=== PATIENT | female | born 1945 | race Caucasian/White ===

== ENCOUNTER → 2016-12-23 | Outpatient (CLI) | payer OTHER ==
[2016-12-23 12:19] LABS: BASO % 0.3 %; BASO ABS # 0.03 K/uL (0-0.2); COMPLETE YES; EOS % 2.5 %; HEMATOCRIT 40.8 % (37-47); IG% 0.4 %; LYMPH % 37.1 %; LYMPH ABS # 3.55 K/uL (1.2-3.4); MEAN CELL VOLUME 85.2 fL (80-100); MEAN CORPUSCULAR HEMOGLOBIN 27.6 pg (25-34); MEAN CORPUSCULAR HGB CONC 32.4 g/dl (32-36); MEAN PLATELET VOLUME 11.1 fL (7.4-10.4); MONO % 7.9 %; NEUT % 51.8 %; PLATELET COUNT 275 K/uL (130-400); RED BLOOD COUNT 4.79 M/uL (4.2-5.4); WHITE BLOOD COUNT 9.58 K/uL (4.8-10.8)
[2016-12-23 13:12] LABS: ESTIMATED AVERAGE GLUCOSE 177 mg/dl; HA1C FLAG Normal (Normal)
[2016-12-23 13:40] LABS: ALT/SGPT 35 U/L (12-78); BLOOD UREA NITROGEN 29 mg/dl (7-18); BUN/CREATININE RATIO 31.7 (10-20); CALCIUM 9.2 mg/dl (8.5-10.1); CARBON DIOXIDE 30 mmol/L (21-32); CHLORIDE 103 mmol/L (98-107); CHOLESTEROL 135 mg/dl (0-200); CHOLESTEROL/HDL RATIO 3.6; GLUCOSE 193 mg/dl (70-99); HDL CHOLESTEROL 37 mg/dl; LDL CHOLESTEROL CALCULATED 42 mg/dl; POTASSIUM 4.1 mmol/L (3.5-5.1); SODIUM 141 mmol/L (136-145); TRIGLYCERIDES 279 mg/dl (0-150); VERY LOW DENSITY LIPOPROT CALC 56 mg/dl
== END | disposition home or self-care (01) ==
LOC: C.LABPBG 08:29
PROVIDERS: ATTEND Family Medicine
DX: E11.9 Type 2 diabetes mellitus without complications (principal); I10 Essential (primary) hypertension

== ENCOUNTER → 2017-06-26 | Outpatient (CLI) | payer OTHER ==
[2017-06-26 12:35] LABS: ALT/SGPT 28 U/L (12-78); BLOOD UREA NITROGEN 37 mg/dl (7-18); BUN/CREATININE RATIO 36.8 (10-20); CALCIUM 10.2 mg/dl (8.5-10.1); CARBON DIOXIDE 28 mmol/L (21-32); CHLORIDE 101 mmol/L (98-107); CHOLESTEROL 139 mg/dl (0-200); GLUCOSE 179 mg/dl (70-99); POTASSIUM 4.1 mmol/L (3.5-5.1); SODIUM 136 mmol/L (136-145)
[2017-06-26 12:39] LABS: CHOLESTEROL/HDL RATIO 3.7; HDL CHOLESTEROL 38 mg/dl; LDL CHOLESTEROL CALCULATED 32 mg/dl; TRIGLYCERIDES 343 mg/dl (0-150); VERY LOW DENSITY LIPOPROT CALC 69 mg/dl
[2017-06-26 12:52] LABS: RATIO 30.9 mcg/mg (0-30.0)
[2017-06-26 13:51] LABS: ESTIMATED AVERAGE GLUCOSE 166 mg/dl; HA1C FLAG Normal (Normal)
== END | disposition home or self-care (01) ==
LOC: C.LABPBG 08:26
PROVIDERS: ATTEND Family Medicine
DX: E78.00 Pure hypercholesterolemia, unspecified (principal); I10 Essential (primary) hypertension; E11.9 Type 2 diabetes mellitus without complications

== ENCOUNTER → 2017-12-29 | Outpatient (CLI) | payer OTHER ==
[2017-12-29 13:05] LABS: ALT/SGPT 30 U/L (12-78); BLOOD UREA NITROGEN 34 mg/dl (7-18); CALCIUM 9.8 mg/dl (8.5-10.1); CARBON DIOXIDE 27 mmol/L (21-32); CHOLESTEROL 144 mg/dl (0-200); CREATININE 0.93 mg/dl (0.60-1.20); GLUCOSE 189 mg/dl (70-99); POTASSIUM 3.8 mmol/L (3.5-5.1); SODIUM 136 mmol/L (136-145)
[2017-12-29 13:08] LABS: LDL CHOLESTEROL CALCULATED 35 mg/dl
[2017-12-29 13:16] LABS: HEMOGLOBIN A1C 7.6 % (4.5-5.6)
== END | disposition home or self-care (01) ==
LOC: C.LABPBG 08:20
PROVIDERS: ATTEND Family Medicine
DX: R39.89 Other symptoms and signs involving the genitourinary system (principal); E78.00 Pure hypercholesterolemia, unspecified; I10 Essential (primary) hypertension; E11.9 Type 2 diabetes mellitus without complications

== ENCOUNTER 2019-02-19 12:54 | Observation (INO) ==
--- NOTE | 2019-02-05 10:11 | Anesthesiology Consultation ---
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 Ankur Pascual, Height/Weight Height: 4 ft 11 in Weight: 77.111 kg Allergies Allergy/AdvReac Type Severity Reaction Status Date / Time Sulfa (Sulfonamide Allergy Mild Rash Verified 02/04/19 11:07 Antibiotics) Medications Home Medications Medication Instructions Recorded Confirmed Last Taken amlodipine 2.5 mg PO QAM 02/04/19 02/04/19 Unknown aspirin [Aspirin Childrens] 81 mg PO QDD 02/04/19 02/04/19 Unknown brimonidine-timolol [Combigan] 1 drp OPHTHALMIC (EYE) BID 02/04/19 02/04/19 Unknown insulin aspart U-100 [Novolog 14 unit SUBCUT PM 02/04/19 02/04/19 Unknown Flexpen U-100 Insulin] insulin aspart U-100 [Novolog 46 unit SUBCUT QAM 02/04/19 02/04/19 Unknown Flexpen U-100 Insulin] losartan-hydrochlorothiazide 1 tab PO QAM 02/04/19 02/04/19 Unknown metformin 850 mg PO QDD 02/04/19 02/04/19 Unknown metoprolol tartrate 100 mg PO BID 02/04/19 02/04/19 Unknown [id number]-opsqocdg-wrojah 1 tab PO QAM 02/04/19 02/04/19 Unknown [Multivitamin 50 Plus] omega 6-ger-wbq-fish oil [Fish Oil] 1 cap PO BID 02/04/19 02/04/19 Unknown simvastatin 40 mg PO HS 02/04/19 02/04/19 Unknown Past Medical History Medical History Blood in stool Cystocele Diabetes mellitus, type 2 Glaucoma bilt eyes History of bilateral breast cancer 2000 right/2006 left Hyperlipidemia Hypertension Osteoarthritis Past Family History Family History Aunt Family history of pseudocholinesterase deficiency 2 aunts "difficulty coming out of it" Past Surgical History Surgical History History of colonoscopy History of left breast biopsy History of lumpectomy of left breast 2006 with lymph nodes removed History of lumpectomy of right breast 2000 with lymph nodes removed History of right breast biopsy History of tooth extraction History of total vaginal hysterectomy (TVH) Status post glaucoma surgery bilt Social History Smoking Status: Never smoker Do You Dip or Chew Tobacco: No Hx Alcohol Use: No Hx Substance Use: No substance use type: does not use Testing Laboratory Results Laboratory Tests 12/29/18 12/29/18 09:28 09:28 Sodium 136 Potassium 4.2 Chloride 101 Carbon Dioxide 29 BUN 34 H Creatinine 0.93 Glucose 227 H Hemoglobin A1c 8.2 H
[2019-02-19] MEDS ORDERED: GLUCOSE 10 TABS/TUBE PO PRN (14:46)
[2019-02-19] MEDS ORDERED: GLUCAGON FOR INJ 1 MG VIAL SQ PRN (14:46)
[2019-02-19] MEDS ORDERED: GLUCOSE 40% GEL 15 GM TUBE PO PRN (14:46)
[2019-02-19] MEDS ORDERED: DEXTROSE 50% 50 ML SYRINGE IV PRN (14:46)
[2019-02-19] MEDS ORDERED: CARBOHYDRATES FOR HYPOGLYCEMIA PO PRN (14:46)
--- NOTE | 2019-02-19 14:52 | Anesthesiology Progress Note ---
Date of Service February 19, 2019 Subjective The patient was scheduled for a colonoscopy today. Upon being admitted, the patient�s vital signs were P 127, BP 153/78, R 16,, T 36.6C, 99% on RA. The patient stated not taking her blood pressure medications for the past 2 days. The patient is asymptomatic. She is denying chest pain or trouble breathing. An EKG showed ST @ 119bpm. I spoke with Dr. Pascual, and we agreed the patient�s procedure should be postponed. I spoke with Dr. Leon, and I recommended the patient should be admitted to better control her heart rate prior to being discharged. I spoke with the patient, and she was understanding.
[2019-02-19] MEDS ORDERED: LIDOCAINE HCL 2% 2 ML VIAL/AMP(20MG/ML) INFIL ONE (15:30)
[2019-02-19] MEDS ORDERED: PROPOFOL IV EMULSION 10 MG/ML 20 ML VIAL IV ONE (15:30)
--- NOTE | 2019-02-19 15:50 | History & Physical Report ---
Date of Service February 19, 2019 Assessment & Plan (1) Blood per rectum: Proceed with colonoscopy History of Present Illness Chief Complaint: Rectal bleeding Primary Care Provider: Teagan Mcrae MD 74 yo CF who presents for colonoscopy secondary to rectal bleeding. Allergies Allergy/AdvReac Type Severity Reaction Status Date / Time Sulfa (Sulfonamide Allergy Mild Rash Verified 02/19/19 14:13 Antibiotics) Home Medications Home Medications Medication Instructions Recorded Confirmed Type amlodipine 2.5 mg PO QAM 02/04/19 02/19/19 History aspirin [Aspirin Childrens] 81 mg PO QDD 02/04/19 02/19/19 History brimonidine-timolol [Combigan] 1 drp OPHTHALMIC (EYE) BID 02/04/19 02/19/19 History insulin aspart U-100 [Novolog 8 unit SUBCUT PM 02/04/19 02/19/19 History Flexpen U-100 Insulin] insulin aspart U-100 [Novolog 22 unit SUBCUT QAM 02/04/19 02/19/19 History Flexpen U-100 Insulin] losartan-hydrochlorothiazide 1 tab PO QAM 02/04/19 02/19/19 History metformin 850 mg PO QDD 02/04/19 02/19/19 History metoprolol tartrate 100 mg PO BID 02/04/19 02/19/19 History nfwxspubivqk-cxtahxrn-khhnfh 1 tab PO QAM 02/04/19 02/04/19 History [Multivitamin 50 Plus] omega 3-tjx-zhq-fish oil [Fish Oil] 1 cap PO BID 02/04/19 02/04/19 History simvastatin 40 mg PO HS 02/04/19 02/04/19 History Past Med/Surg History Medical History Blood in stool Cystocele Diabetes mellitus, type 2 Glaucoma bilt eyes History of bilateral breast cancer 2000 right/2006 left Hyperlipidemia Hypertension Osteoarthritis Surgical History History of colonoscopy History of left breast biopsy History of lumpectomy of left breast 2006 with lymph nodes removed History of lumpectomy of right breast 2000 with lymph nodes removed History of right breast biopsy History of tooth extraction History of total vaginal hysterectomy (TVH) Status post glaucoma surgery bilt Family History Aunt Family history of pseudocholinesterase deficiency 2 aunts "difficulty coming out of it" Social History Preferred Language: Occitan Communication Ability: Effective 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 Beliefs That Will Affect Care: None Current Living Situation: Spouse Other Information That Helps Us Care for You: No Feels Safe at Home: Yes Safety Concerns: Feels Safe At This Time Smoking Status: Never smoker Do You Dip or Chew Tobacco: No Second Hand Exposure: No Tobacco Cessation Education Requested by Patient: No Hx Alcohol Use: No Hx Substance Use: No Physical Exam Constitutional: WD/WN, vitals as above Respiratory: normal respiratory effort, lungs clear to auscultation Cardiovascular: RRR, no murmur, no edema Gastrointestinal (Abdomen): normal bowel sounds, soft, nontender, no hepatosplenomegaly Results & Data Vital Signs (Past 12 Hours) Vital Signs Temp Pulse Resp BP Pulse Ox 02/19/19 15:30 115 H 16 150/90 H 96 02/19/19 14:05 36.6 C 127 H 16 153/78 H 99
[2019-02-19] MEDS ORDERED: METOPROLOL TARTRATE 1 MG/ML VIAL IV ONE (15:54)
--- NOTE | 2019-02-19 16:01 | History & Physical Report ---
Date of Service February 19, 2019 Assessment & Plan (1) Blood per rectum: Patient had a bout of melena. This prompted her physician to proceed with colonoscopy. Her last screening colonoscopy was over 10 years ago. Results are currently pending at the time of this dictation we do not have a hemoglobin on record in the system but this will be performed post procedure (2) Tachycardia: Likely from beta-rehana withdrawal patient given intravenous metoprolol and resuming her metoprolol dose of 100 twice daily is having no symptoms with her tachycardia at this time a TSH will be checked also (3) Diabetes: Patient reduce her insulin therapy from 46 in a.m. to 22 and 40 mg each she takes short acting insulin. These have doses will be continued until we can track her insulin requirement during her hospital stay especially in her periprocedural state insulin sliding scale was ordered with PFTs and A1c and will be checked in the morning (4) Hypertension: For the remainder of her blood pressure control she will be resumed on amlodipine losartan hydrochlorothiazide also in the morning of 02/20 (5) Dyslipidemia: Patient is maintained on Zocor therapy History of Present Illness Primary Care Provider: Teagan Mcrae MD 74-year-old female who presented to endoscopy for a elective colonoscopy due to melena. She erroneously held her metoprolol prior to the procedure. She did appropriately reduce her insulin dose by 50%. Onset of holding her metformin she is decided to hold her metoprolol. Subsequently she presented with sinus tachycardia. Coordination with Dr. Bolivar through anesthesiology and Dr. Pascual to endoscopy we came to resolution to try to proceed with colonoscopy with administration of intravenous metoprolol and observe the patient in the hospital afterwards for recovery. This would be beneficial to the patient that is it is Friday and she cannot postpone her test at Friday and I did not wish to proceed through another prep. Otherwise patient is having no chest pain with a tachycardia no shortness of breath tachycardia has no preceding history of tachycardia. It should be noted that Dr. Bolivar was instrumental in facilitating this patient's goal of having her colonoscopy done today Allergies Allergy/AdvReac Type Severity Reaction Status Date / Time Sulfa (Sulfonamide Allergy Mild Rash Verified 02/19/19 14:13 Antibiotics) Home Medications Home Medications Medication Instructions Recorded Confirmed Type amlodipine 2.5 mg PO QAM 02/04/19 02/19/19 History aspirin [Aspirin Childrens] 81 mg PO QDD 02/04/19 02/19/19 History brimonidine-timolol [Combigan] 1 drp OPHTHALMIC (EYE) BID 02/04/19 02/19/19 History insulin aspart U-100 [Novolog 8 unit SUBCUT PM 02/04/19 02/19/19 History Flexpen U-100 Insulin] insulin aspart U-100 [Novolog 22 unit SUBCUT QAM 02/04/19 02/19/19 History Flexpen U-100 Insulin] losartan-hydrochlorothiazide 1 tab PO QAM 02/04/19 02/19/19 History metformin 850 mg PO QDD 02/04/19 02/19/19 History metoprolol tartrate 100 mg PO BID 02/04/19 02/19/19 History duzvxjcqsrrj-uxdqwvvs-qmwjyf 1 tab PO QAM 02/04/19 02/04/19 History [Multivitamin 50 Plus] omega 6-fbp-elj-fish oil [Fish Oil] 1 cap PO BID 02/04/19 02/04/19 History simvastatin 40 mg PO HS 02/04/19 02/04/19 History Past Med/Surg History Medical History Blood in stool Cystocele Diabetes mellitus, type 2 Glaucoma bilt eyes History of bilateral breast cancer 2000 right/2006 left Hyperlipidemia Hypertension Osteoarthritis Surgical History History of colonoscopy History of left breast biopsy History of lumpectomy of left breast 2006 with lymph nodes removed History of lumpectomy of right breast 2000 with lymph nodes removed History of right breast biopsy History of tooth extraction History of total vaginal hysterectomy (TVH) Status post glaucoma surgery bilt Family History Aunt Family history of pseudocholinesterase deficiency 2 aunts "difficulty coming out of it" Social History Preferred Language: Burkinan Communication Ability: Effective 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 No double vision blurry vision No problems with speech or swallowing No palpitations, chest pain or pressure No Wheezing or breathing issues No abdominal pain nausea vomiting diarrhea no changes in appetite or weight, one bout of melena No burning urine urine frequency or changes in color No focal joint pain or muscle pain No skin rashes or oral lesions No unusual bruising or bleeding No focused back pain or numbness or loss of strength No changes in memory or confusion Physical Exam Physical Exam: The patient appeared well nourished and normally developed. Vital signs as documented. Sinus tachycardia seen this is in the preprocedure state Head exam is unremarkable. normocephalic, atraumatic Neck is without jugular venous distension, thyromegaly, or lymphademopathy Lungs are clear to auscultation and percussion. Cardiac exam reveals tachycardic no murmurs were heard Abdominal exam reveals normal bowel sounds, no masses, no organomegaly Extremities are nonedematous and both pedal pulses are present Neurologic exam is A&Ox3, no focal deficits, strength is equal bilateral Psychologically seems neither anxious or depressed Skin is warm Dry without bruises or lesions Results & Data Vital Signs (Past 12 Hours) Vital Signs Temp Pulse Resp BP Pulse Ox 02/19/19 15:30 115 H 16 150/90 H 96 02/19/19 14:05 36.6 C 127 H 16 153/78 H 99
--- NOTE | 2019-02-19 16:15 | GI REPORT ---
Patient Name: Hannah Morrissey Procedure Date: 02/19/2019 3:53 PM Date of : 1945 Admit Type: Outpatient Age: 74 Gender: Female Attending MD: Eliseo Pascual DO Procedure: Colonoscopy Providers: Eliseo Pascual DO Referring MD: Teagan cMrae Md Indications: Rectal bleeding Medicines: Monitored Anesthesia Care Complications: No immediate complications. Estimated Blood Loss: Estimated blood loss: none. Procedure: Pre-Anesthesia Assessment: - Prior to the procedure, a History and Physical was performed, and patient medications and allergies were reviewed. The patient's tolerance of previous anesthesia was also reviewed. The risks and benefits of the procedure and the sedation options and risks were discussed with the patient. All questions were answered, and informed consent was obtained. Prior Anticoagulants: The patient has taken aspirin, last dose was 6 days prior to procedure. ASA Grade Assessment: III - A patient with severe systemic disease. After reviewing the risks and benefits, the patient was deemed in satisfactory condition to undergo the procedure. After I obtained informed consent, the scope was passed under direct vision. Throughout the procedure, the patient's blood pressure, pulse, and oxygen saturations were monitored continuously. The scope was introduced through the anus and advanced to the terminal ileum. The colonoscopy was performed without difficulty. The patient tolerated the procedure well. The quality of the bowel preparation was good. The terminal ileum, ileocecal valve, appendiceal orifice, and rectum were photographed. Findings: The perianal and digital rectal examinations were normal. Multiple small-mouthed diverticula were found in the sigmoid colon. Non-bleeding internal hemorrhoids were found during retroflexion. The hemorrhoids were small. Impression: - Diverticulosis in the sigmoid colon. - Non-bleeding internal hemorrhoids. - No specimens collected. Recommendation: - Resume previous diet. - Continue present medications. - No repeat colonoscopy due to age and the absence of advanced adenomas. - Return to primary care physician as previously scheduled. Eliseo Pascual DO 02/19/2019 4:14:46 PM This report has been signed electronically. Note Initiated On: 02/19/2019 3:53 PM Number of Addenda: 0 I attest to the content of the Intraoperative Record and orders documented therein, exceptions below {[id number]}
--- NOTE | 2019-02-19 16:16 | Anesthesiology Progress Note ---
Date of Service February 19, 2019 Anesthesia Post Procedure Vital Signs Vital Signs: Temp Pulse Resp BP Pulse Ox 02/19/19 15:30 115 H 16 150/90 H 96 02/19/19 14:05 97.9 F 127 H 16 153/78 H 99 Transfer of Care Handoff Completed per policy Notes Mental Status: alert / awake / arousable and participated in evaluation Patient Amnestic to Procedure: Yes Nausea / Vomiting: adequately controlled Pain: adequately controlled Airway Patency, RR, SpO2: stable & adequate BP & HR: stable & adequate Hydration State: stable & adequate Anesthetic Complications: no major complications apparent and Pt Satisfied with anesthetic care Notes: Pt was administered metoprolol 2.5 mg IV. In PACU, pt�s HR 93, BP 106/74, and 100% RA.
[2019-02-19] MEDS ORDERED: INSULIN ASPART 100 UNITS/ML 3 ML PEN SQ SCH (16:30)
[2019-02-19] MEDS ORDERED: METOPROLOL TARTRATE 1 MG/ML VIAL IV PRN (17:38)
[2019-02-19] MEDS ORDERED: ACETAMINOPHEN 325 MG TAB PO PRN (17:38)
[2019-02-19] MEDS ORDERED: ONDANSETRON INJ 2 MG/ML 2 ML VIAL IV PRN (17:38)
[2019-02-19] MEDS: INSULIN ASPART 100 UNITS/ML 3 ML PEN SC SCH ×2 (18:21→22:18)
[2019-02-19 18:27] LABS: Basophils # (auto) 0.02 K/uL (0-0.2); Basophils % (auto) 0.2 %; Eosinophils # (auto) 0.12 K/uL (0-0.5); Eosinophils % (auto) 1.1 %; Hemoglobin 14.1 g/dL (12.0-16.0); Immature Granulocytes # (auto) 0.03 K/uL (0.00-0.02); Immature Granulocytes % (auto) 0.3 %; Lymphocytes # (auto) 4.23 K/uL (1.2-3.4); Lymphocytes % (auto) 37.9 %; Mean Corpuscular Hgb Conc 34.4 g/dL (32-36); Mean Platelet Volume 10.5 fL (7.4-10.4); Monocytes # (auto) 0.68 K/uL (0.11-0.59); Monocytes % (auto) 6.1 %; Neutrophils # (auto) 6.07 K/uL (1.4-6.5); Neutrophils % (auto) 54.4 %; Platelet Count 248 K/uL (130-400); RDW Coefficient of Variation 13.6 % (11.5-14.5); RDW Standard Deviation 41.2 fL (36.4-46.3); Red Blood Count 4.88 M/uL (4.2-5.4); White Blood Count 11.15 K/uL (4.8-10.8)
[2019-02-19] MEDS: SODIUM CHLORIDE 0.9% 1000ML 1,000 ML IV SCH (18:30)
[2019-02-19 18:42] LABS: BUN Creatinine Ratio 27.6 (10-20); Calcium 9.8 mg/dl (8.5-10.1); Creatinine Clr Calc Pharmacy 49.9 ml/min; Est GFR (African American) 76.1; Est GFR (Non-African American) 65.6; Potassium 3.8 mmol/L (3.5-5.1)
[2019-02-19] MEDS: OMEGA-3 (PURIFIED FISH OIL) 1 GM CAP PO SCH (20:46)
[2019-02-19] MEDS: METOPROLOL TARTRATE 100 MG TAB PO SCH (20:47)
[2019-02-19] MEDS ORDERED: SIMVASTATIN 40 MG TAB PO SCH (21:00)
[2019-02-20] MEDS: COMBIGAN: ORDER AWAITING ACTION SCH ×2 (00:34→08:12)
[2019-02-20 06:05] LABS: Hematocrit (blood only) 39.5 % (37-47); Hemoglobin 13.2 g/dL (12.0-16.0); Mean Corpuscular Hgb Conc 33.4 g/dL (32-36); Mean Corpuscular Volume 84.4 fL (80-100); Mean Platelet Volume 10.5 fL (7.4-10.4); Platelet Count 260 K/uL (130-400); RDW Coefficient of Variation 13.5 % (11.5-14.5); RDW Standard Deviation 41.1 fL (36.4-46.3); Red Blood Count 4.68 M/uL (4.2-5.4); White Blood Count 10.09 K/uL (4.8-10.8)
[2019-02-20 06:32] LABS: BUN Creatinine Ratio 21.5 (10-20); Calcium 8.9 mg/dl (8.5-10.1); Est GFR (Non-African American) 61.3; Potassium 3.8 mmol/L (3.5-5.1)
[2019-02-20 07:02] LABS: Estimated Average Glucose 169 mg/dl; Hemoglobin A1C 7.5 % (4.5-5.6)
[2019-02-20] MEDS ORDERED: INSULIN ASPART 100 UNITS/ML 3 ML PEN SQ SCH (07:30)
[2019-02-20] MEDS: SODIUM CHLORIDE 0.9% 1000ML 1,000 ML IV SCH (08:06)
[2019-02-20] MEDS: INSULIN ASPART 100 UNITS/ML 3 ML PEN SC SCH (08:10)
[2019-02-20] MEDS: METOPROLOL TARTRATE 100 MG TAB PO SCH (08:13)
[2019-02-20] MEDS: OMEGA-3 (PURIFIED FISH OIL) 1 GM CAP PO SCH (08:13)
[2019-02-20] MEDS ORDERED: CEROVITE ADV FORMULA TAB PO SCH (09:00)
[2019-02-20] MEDS ORDERED: AMLODIPINE BESYLATE 5 MG TAB PO SCH (09:00)
[2019-02-20] MEDS ORDERED: LOSARTAN/HCTZ 50/12.5MG TAB PO SCH (09:00)
--- NOTE | 2019-02-20 10:05 | Discharge Summary ---
Date of Service February 20, 2019 Admission HPI Per Admitting Provider 74-year-old female who presented to endoscopy for a elective colonoscopy due to melena. She erroneously held her metoprolol prior to the procedure. She did appropriately reduce her insulin dose by 50%. Onset of holding her metformin she is decided to hold her metoprolol. Subsequently she presented with sinus tachycardia. Coordination with Dr. Bolivar through anesthesiology and Dr. Pascual to endoscopy we came to resolution to try to proceed with colonoscopy with administration of intravenous metoprolol and observe the patient in the hospital afterwards for recovery. This would be beneficial to the patient that is it is Friday and she cannot postpone her test at Friday and I did not wish to proceed through another prep. Otherwise patient is having no chest pain with a tachycardia no shortness of breath tachycardia has no preceding history of tachycardia. It should be noted that Dr. Bolivar was instrumental in facilitating this patient's goal of having her colonoscopy done today Principal Diagnosis Rectal bleeding, hemorrhoids Discharge Exam Constitutional WD/WN, vitals as above Eyes PERRL, conjunctivae normal, anicteric sclerae ENMT external ear and nose normal, oropharynx normal Neck trachea midline, no thyromegaly Respiratory normal respiratory effort, lungs clear to auscultation Cardiovascular RRR, no murmur, no edema Gastrointestinal (Abdomen) normal bowel sounds, soft, nontender, no hepatosplenomegaly Musculoskeletal no cyanosis or clubbing, extremities motor strength 5/5 Skin no rashes, warm and dry Neurologic patellar DTR's 2+ bilat, sensation intact and PERRL, EOMI, accommodation nl, no face palsy, no dysarthria Psychiatric A+Ox3, euthymic affect Lymphatic no cervical or axillary lymphadenopathy Discharge Data Allergies Allergy/AdvReac Type Severity Reaction Status Date / Time Sulfa (Sulfonamide Allergy Mild Rash Verified 02/19/19 14:13 Antibiotics) Procedures Performed Operation Date: 02/19/19 14:15 Actual Procedures p Colonoscopy - Eliseo Pascual, DO Hospital Course (1) Blood per rectum: Patient had a bout of melena. This prompted her physician to proceed with colonoscopy. Her last screening colonoscopy was over 10 years ago. colonoscopy only showed some internal hemorrhoids, likely the cause of bleeding no further colonoscopies recommended in her lifetime per Dr. Pascual (2) Tachycardia: Likely from beta-rehana withdrawal patient given intravenous metoprolol and resuming her metoprolol dose of 100 twice daily is having no symptoms with her tachycardia at time of admission HR consistently below 100 on the monitor, now back on Metoprolol 100mg BID safe for discharge (3) Diabetes: resume home dosing of insulin now that bowel prep completed (4) Hypertension: amlodipine losartan hydrochlorothiazide and metoprolol BP well controlled (5) Dyslipidemia: Patient is maintained on Zocor therapy Total Time Total Time Spent Total Time Spent (In Minutes): 20 minutes Total Time Includes: Examination of the Patient, Discharge Planning and Medication Reconciliation Discharge Plan Discharge Items Patient Disposition: Home - Self-Care Reason For Visit: TACHYCARDIA Discharge Diagnosis: Tachycardia Bleeding per rectum normal colonoscopy Condition: Good Discharge Goals: Improve disease control and Improve function Activity: Resume your previous activity Non-emergency contact: Primary Care Provider Call non-emergency contact if: you have any medication questions, your symptoms worsen and you have a fever Follow-up/Referrals: Teagan Mcrae MD [Primary Care Provider] - Diet: Carb Consistent or DM2 and Heart Healthy Addtl Provider Instructions: Medications: no changes Colonoscopy: normal results, no bleeding, hemoglobin is normal this morning at 13gm per Dr. Pascual, you do not need any further colonoscopies due to normal results and age FOLLOW UP - no clear need to schedule follow up with Dr. Mcrae, call her with any new issues Prescriptions: Continued Multivitamin 50 Plus Tablet 1 tab PO QAM RF: 0 metoprolol tartrate 100 mg Tablet 100 mg PO BID RF: 0 metformin 850 mg Tablet 850 mg PO QDD RF: 0 amlodipine 2.5 mg Tablet 2.5 mg PO QAM RF: 0 simvastatin 40 mg Tablet 40 mg PO HS RF: 0 losartan-hydrochlorothiazide 100-25 mg Tablet 1 tab PO QAM RF: 0 aspirin [Aspirin Childrens] 81 mg Tablet,Chewable 81 mg PO QDD RF: 0 Novolog Flexpen U-100 Insulin 100 unit/mL (3 mL) Insulin Pen 22 unit SUBCUT QAM RF: 0 Novolog Flexpen U-100 Insulin 100 unit/mL (3 mL) Insulin Pen 8 unit SUBCUT PM RF: 0 Combigan 0.2-0.5 % Drops 1 drp OPHTHALMIC (EYE) BID RF: 0 omega 3-qvo-ndp-fish oil [Fish Oil] 360-1,200 mg Capsule,Delayed Release(Dr/Ec) 1 cap PO BID RF: 0 Stand-Alone Forms: [facility] Discharge Orders: Discharge Order (Routine); Ordered 02/20/19 Ordered By: Lance Kebede Admission Data Admit Date/Time: 02/19/19 14:48 Attending Provider: Lance Kebede Admit Provider: Delio Leon Primary Care Provider: Teagan Mcrae Service: Telemetry Other Interventions: Discharge Summary Assessment (RN) Last Done: 02/20/19 10:08 DC Date/Time DO NOT enter until pt leaves facility: 02/20/19 11:55
== END 2019-02-20 11:55 | disposition home or self-care (01) ==
LOC: ENDO 12:54 → 2S 12:54 → SUATTDRO 14:48

== ENCOUNTER 2021-12-26 07:02 | Inpatient (IN) ==
--- NOTE | 2021-12-26 07:41 | Emergency Department Note ---
Impression & Plan Acute CVA (cerebrovascular accident), Atrial fibrillation with RVR, Atrial fibrillation, new onset, Fall ED Provider Note CHIEF COMPLAINT: Stroke Sx, fall HISTORY OF PRESENT ILLNESS: This 76 yo female patient presents to the emergency department via EMS after falling in the middle of the night and struggling to get up. Patient states she did not feel well last night and skipped dinner georgette und 6 PM. She did eat something around 10 PM but then went back to bed. Around 2:30 AM patient got up and attempted to walk to the bathroom but slid to the floor. She denies any injuries but states she was not able to get up. She called for her who tried to get her up for several hours but was unsuccessful. Finally this morning they called the daughter who tried to help as well but was also unsuccessful. Patient's daughter then called EMS. Patient denies ever having speech difficulty or weakness in the extremities. She denies hitting her head or complaints of neck discomfort. She denies losing consciousness. REVIEW OF SYSTEMS: A review of systems was performed with positives and pertinent negatives listed in the history of present illness. 10 systems were reviewed and are otherwise negative. ALLERGIES: see below MEDICATIONS: see below PMH: see below SOCIAL HISTORY: see below DDx: Infection, dehydration, metabolic abnormality, hypo/hyperglycemia, electrolyte disturbance, anemia, hypoxia, cardiac sources, intracerebral event, toxicologic, neurologic, as well as other pathologies. PHYSICAL EXAM: Vital signs reviewed. General: Elderly 76 yo female, in no significant distress. HEENT: No scleral icterus, PERRLA, neck supple. Atraumatic. Cardiovascular: Regular rate and rhythm, no extra sounds. Pulmonary: Clear to auscultation bilaterally, normal work of breathing. Abdomen: Soft, nontender, nondistended, positive bowel sounds. Musculoskeletal: Atraumatic, no peripheral edema. Neurologic: Patient awake alert and oriented x 3, speech is clear. Ataxia noted to the right upper and right lower extremity. Equal linen worker strength. Equal strength noted to all 4 extremities. Visual sharpe appear to be intact. Cranial nerves II through XII grossly appear to be intact Skin: Warm, dry, no rash EMERGENCY DEPARTMENT COURSE/MDM: This patient was evaluated and appeared to be in no significant distress. IV access was obtained and laboratory work was dr pena. Patient's physical examination was consistent with a right upper and lower extremity ataxia. A stroke alert was called although the patient was felt not to be a TPA candidate as the last known well time was between 10 and 1030 the evening prior to presentation. CT imaging of the head was performed and is negative for acute ischemic finding however there is a questionable occlusion of the P1 segment of the left EXERCISER. Images were sent to the stroke attending for review who felt as though this was a small vessel but not an occluded vessel. He did feel that the patient was suffering from an acute infarct however and recommended aspirin and Plavix load. Patient is not a candidate for TPA given the delay in presentation and is not in candidate for clot retrieval as there is no large vessel occlusion. Findings and plan were discussed with the family as well as the hospitalist. Patient did have a run of rapid atrial fibrillation while awaiting evaluation in the emergency department. IV metoprolol was ordered. Patient will be evaluated for admission and further management. MONITORING: An order for cardiac monitoring was placed and the patient is noted to be in a normal sinus rhythm at 82 beats per minute. RADIOLOGY: See below EKG: Normal sinus rhythm 81 bpm. No PVC, no PAC. Normal ST segments. QTC is 490. Normal axis. When compared to previous dated February 19, 2019, ST segments are no longer depressed to the lateral leads. EKG #2 reveals atrial fibrillation with RVR at 115 bpm. Left axis deviation. Likely previous inferior infarct with prolonged QTc interval of 500. Normal ST segments. When compared to previous, atrial fibrillation has replaced normal sinus rhythm. DISPOSITION: Admit I have personally spent 35 minutes of critical care time in the direct management of this patient. This was a life/limb threatening event. This 35 minutes is in excess of all separately billable procedures. Past Med/Surg History Medical History Cystocele Diabetes mellitus, type 2 Dyslipidemia Glaucoma History of breast cancer Hypertension Osteoarthritis Osteopenia Paroxysmal atrial fibrillation Surgical History History of colonoscopy History of left breast biopsy History of lumpectomy of left breast 2006 with lymph nodes removed History of lumpectomy of right breast 2000 with lymph nodes removed History of right breast biopsy History of tooth extraction History of total vaginal hysterectomy (TVH) Status post glaucoma surgery bilt Family History Aunt Family history of pseudocholinesterase deficiency 2 aunts "difficulty coming out of it" Family/Other Breast cancer Pancreatic cancer Father , in his 70s of an MRI Myocardial infarction Mother , age 38 of "goiter" complications Goiter Unknown Colorectal cancer Denies family history of Ovarian cancer Prostate cancer Social History Smoking Status: Never smoker Second Hand Exposure: No; Hx Alcohol Use: No Hx Substance Use: No Preferred Language: Divehi Communication Ability: Effective Hearing Ability: Normal Baggage Inspector Required: No Beliefs That Will Affect Care: None marital status: Current Living Situation: Spouse current occupational status: retired 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 How many Children do You have: 1 Feels Safe at Home: Yes Childhood Exposure to Second-Hand Smoke: No Dental Care, Regularly: Yes Physical Activity Frequency: Daily Physical Activity Frequency Comment: bike pedaling Seatbelt Use: always Sunscreen Use: Yes Assistive Devices: None Allergies Allergies Allergy/AdvReac Type Severity Reaction Status Date / Time Sulfa (Sulfonamide Allergy Mild Rash Verified 08/17/21 11:27 Antibiotics) Home Meds Home Medications Medication Instructions Recorded Confirmed aspirin 81 mg chewable tablet 81 mg PO DAILY 02/04/19 12/26/21 (Aspirin Childrens) [id number] 1 tab PO QAM 02/04/19 12/26/21 tablet (Multivitamin 50 Plus) omega-3 360 tt-nsv-agr-fish oil 1 cap PO BID 02/04/19 12/26/21 1,200 mg capsule,delayed release (Fish Oil) Previous Rx's Medication Instructions Recorded glucose 4 gram chewable tablet 4 g PO Q15M PRN #20 tab 11/06/20 (Dex4 Glucose) amlodipine 2.5 mg tablet 2.5 mg PO DAILY #90 tab 03/27/21 hydrochlorothiazide 25 mg tablet 25 mg PO DAILY #90 tab 03/27/21 lancets (Accu-Chek Multiclix #100 ea 03/27/21 Lancet) losartan 100 mg tablet 100 mg PO DAILY #90 tab 03/27/21 pen needle, diabetic 29 gauge x #200 ea 03/27/21 1/2" (BD Ultra-Fine Original Pen Needle) simvastatin 40 mg tablet 40 mg PO HS #90 tab 03/27/21 metformin 1,000 mg tablet 1,000 mg PO BID 90 Days #180 tab 05/04/21 insulin aspart U-100 100 unit/mL See Rx Instructions SUBCUT BID #60 08/17/21 (3 mL) subcutaneous pen (Novolog ml Flexpen U-100 Insulin aspart) blood sugar diagnostic (OneTouch #200 ea 10/22/21 Ultra Test) metoprolol tartrate 100 mg tablet 100 mg PO BID #180 tab 11/26/21 Results & Data (ED) Vital Signs Vital Signs - 24 hr 12/26/21 07:06 Temperature 36.8 C Temperature Source Oral Pulse Rate 84 Pulse Rhythm Regular Pulse Strength Normal Respiratory Rate 17 Respiratory Effort / Characteristics Non-Labored Respiratory Depth Normal Blood Pressure 147/95 H Blood Pressure Mean 112 Blood Pressure Position Lying Pulse Oximetry 99 Oxygen Delivery Method Room Air Sepsis Recent Fever Within 48 Hours No Sepsis New/Unexplained Change in Mental Status N/A Sepsis Action Taken by Nursing No Action Required Home Medications Current Medication List: was personally reviewed by me Laboratory Data Attestation: I reviewed the patient's lab results. Result diagrams: 12/29/21 07:39 12/29/21 07:39 Lab Results 12/26/21 12/26/21 12/26/21 Range/Units 07:30 07:30 07:30 WBC 15.99 H (4.8-10.8) K/uL RBC 4.65 (4.2-5.4) M/uL Hgb 12.9 (12.0-16.0) g/dL POC Hgb (12.0-16.0) g/dl Hct 39.5 (37-47) % POC Hct (37-47) % MCV 84.9 (80-100) fL MCH 27.7 (25-34) pg MCHC 32.7 (32-36) g/dL RDW Std Deviation 41.0 (36.4-46.3) fL RDW Coeff of [place]peranza 13.3 (11.5-14.5) % Plt Count 338 (130-400) K/uL MPV 11.1 H (7.4-10.4) fL Immature Gran % (Auto) 0.3 % Neut % (Auto) 82.7 % Lymph % (Auto) 11.8 % [place] % (Auto) 4.9 % Eos % (Auto) 0.2 % Baso % (Auto) 0.1 % Neut # (Auto) 13.24 H (1.4-6.5) K/uL Lymph # (Auto) 1.88 (1.2-3.4) K/uL [place] # (Auto) 0.78 H (0.11-0.59) K/uL Eos # (Auto) 0.03 (0-0.5) K/uL Baso # (Auto) 0.01 (0-0.2) K/uL Immature Gran # (Auto) 0.05 H (0.00-0.02) K/uL PT 10.7 (9.0-12.0) Seconds INR 1.0 (0.9-1.1) APTT 24.2 (21.0-31.0) Seconds PTT Ratio 0.9 POC Sodium (135-144) mmol/L Sodium 137 (136-145) mmol/L POC Potassium (3.3-5.0) mmol/L Potassium 3.4 L (3.5-5.1) mmol/L POC Chloride (101-112) mmol/L Chloride 100 (98-107) mmol/L Carbon Dioxide 24 (21-32) mmol/L POC Total CO2 (24-31) mmol/L Anion Gap 13 H (3-11) POC Anion Gap (16-25) mmol/L POC BUN (7-18) mg/dl BUN 38 H (6-23) mg/dl Creatinine 1.35 H (0.6-1.2) mg/dl POC Creatinine (0.6-1.3) mg/dl Est Cr Clr Drug Dosing 30.6 ml/min Est GFR ( Amer) 43.5 ml/min Est GFR (Non-Af Amer) 37.5 ml/min BUN/Creatinine Ratio 28.1 H (10-20) Glucose 214 H (70-99(Fasting)) mg/dl POC Glucose (other) (70-99) mg/dl Calcium 10.2 H (8.5-10.1) mg/dl POC Ioniz Calcium [place] (1.12-1.32) mmol/l Magnesium 1.9 (1.7-2.4) mg/dl Total Bilirubin 0.6 (0.2-1.0) mg/dl AST 21 (13-39) U/L ALT 12 (7-52) U/L Alkaline Phosphatase 68 (34-104) U/L Troponin I High Sens 144.6 H* (0-14) pg/ml Total Protein 8.1 (6.0-8.3) gm/dl Albumin 4.1 (3.4-5.0) gm/dl Globulin 4.0 (2.5-4.0) gm/dl Albumin/Globulin Ratio 1.0 (0.9-2) 12/26/21 12/26/21 Range/Units 07:39 09:28 WBC (4.8-10.8) K/uL RBC (4.2-5.4) M/uL Hgb (12.0-16.0) g/dL POC Hgb 13.9 (12.0-16.0) g/dl Hct (37-47) % POC Hct 41 (37-47) % MCV (80-100) fL MCH (25-34) pg MCHC (32-36) g/dL RDW Std Deviation (36.4-46.3) fL RDW Coeff of Esperanza (11.5-14.5) % Plt Count (130-400) K/uL MPV (7.4-10.4) fL Immature Gran % (Auto) % Neut % (Auto) % Lymph % (Auto) % [place] % (Auto) % Eos % (Auto) % Baso % (Auto) % Neut # (Auto) (1.4-6.5) K/uL Lymph # (Auto) (1.2-3.4) K/uL [place] # (Auto) (0.11-0.59) K/uL Eos # (Auto) (0-0.5) K/uL Baso # (Auto) (0-0.2) K/uL Immature Gran # (Auto) (0.00-0.02) K/uL PT (9.0-12.0) Seconds INR (0.9-1.1) APTT (21.0-31.0) Seconds PTT Ratio POC Sodium 139 (135-144) mmol/L Sodium (136-145) mmol/L POC Potassium 3.3 (3.3-5.0) mmol/L Potassium (3.5-5.1) mmol/L POC Chloride 100 L (101-112) mmol/L Chloride (98-107) mmol/L Carbon Dioxide (21-32) mmol/L POC Total CO2 25 (24-31) mmol/L Anion Gap (3-11) POC Anion Gap 18.0 (16-25) mmol/L POC BUN 37 H (7-18) mg/dl BUN (6-23) mg/dl Creatinine (0.6-1.2) mg/dl POC Creatinine 1.4 H (0.6-1.3) mg/dl Est Cr Clr Drug Dosing ml/min Est GFR ( Amer) ml/min Est GFR (Non-Af Amer) ml/min BUN/Creatinine Ratio (10-20) Glucose (70-99(Fasting)) mg/dl POC Glucose (other) 226 H (70-99) mg/dl Calcium (8.5-10.1) mg/dl POC Ioniz Calcium [place] 1.23 (1.12-1.32) mmol/l Magnesium (1.7-2.4) mg/dl Total Bilirubin (0.2-1.0) mg/dl AST (13-39) U/L ALT (7-52) U/L Alkaline Phosphatase (34-104) U/L Troponin I High Sens 207.3 H* D (0-14) pg/ml Total Protein (6.0-8.3) gm/dl Albumin (3.4-5.0) gm/dl Globulin (2.5-4.0) gm/dl Albumin/Globulin Ratio (0.9-2) Administered Medications Apixaban (Apixaban 5 Mg Tablet) 5 mg PO BID [facility] Stop: 01/27/22 08:59 Last Admin: 12/28/21 21:26 Dose: 5 mg Documented by: [id number] Admin: 12/28/21 10:00 Dose: 5 mg Documented by: [id number] Aspirin (Aspirin 81 Mg Chew) 81 mg PO DAILY GIGI Stop: 01/26/22 08:59 Last Admin: 12/28/21 08:47 Dose: 81 mg Documented by: [id number] Admin: 12/27/21 09:59 Dose: 81 mg Documented by: [id number] Fish Oil ([place]-3 (Purified Fish Oil) 1 Gm Cap) 1 gm PO BID GIGI Stop: 01/25/22 20:59 Last Admin: 12/28/21 21:26 Dose: 1 gm Documented by: [id number] Admin: 12/28/21 08:43 Dose: 1 gm Documented by: [id number] Admin: 12/27/21 21:06 Dose: 1 gm Documented by: [id number] Admin: 12/27/21 09:59 Dose: 1 gm Documented by: [id number] Admin: 12/26/21 20:36 Dose: Not Given Documented by: [id number] Insulin Aspart (Insulin Aspart Per Unit) 0 units SC ACHS [facility] Stop: 01/26/22 11:29 Last Admin: 12/28/21 22:34 Dose: Not Given Documented by: [id number] Admin: 12/28/21 16:58 Dose: 4 units Documented by: [id number] Cosigned by: [id number] Admin: 12/28/21 12:25 Dose: 8 units Documented by: [id number] Cosigned by: [id number] Admin: 12/28/21 08:42 Dose: 8 units Documented by: [id number] Cosigned by: [id number] Admin: 12/27/21 21:04 Dose: Not Given Documented by: [id number] Admin: 12/27/21 17:43 Dose: 6 units Documented by: [id number] Cosigned by: [id number] Admin: 12/27/21 12:20 Dose: 5 units Documented by: [id number] Cosigned by: [id number] Insulin Glargine (Insulin Glargine Solostar 100 Units/Ml 3 Ml Pen) 0 units SC QAM [facility]; Protocol Stop: 01/27/22 08:59 Last Admin: 12/28/21 08:44 Dose: 20 units Documented by: [id number] Cosigned by: [id number] Metoprolol Tartrate (Metoprolol Tartrate 1 Mg/Ml Vial) 5 mg IV Q6 [facility]; Protocol Stop: 01/25/22 17:59 Last Admin: 12/26/21 18:08 Dose: 5 mg Documented by: [id number] Metoprolol Tartrate (Metoprolol Tartrate 100 Mg Tab) 100 mg PO BID [facility] Stop: 01/26/22 20:59 Last Admin: 12/28/21 21:26 Dose: 100 mg Documented by: [id number] Admin: 12/28/21 08:43 Dose: 100 mg Documented by: [id number] Admin: 12/27/21 22:06 Dose: 100 mg Documented by: [id number] Multivitamins/Minerals (Cerovite Adv Formula Tab) 1 tab PO QAM [facility] Stop: 01/26/22 08:59 Last Admin: 12/28/21 08:43 Dose: 1 tab Documented by: [id number] Admin: 12/27/21 09:59 Dose: 1 tab Documented by: [id number] Simvastatin (Simvastatin 40 Mg Tab) 40 mg PO PM [facility] Stop: 01/26/22 20:59 Last Admin: 12/28/21 21:26 Dose: 40 mg Documented by: [id number] Admin: 12/27/21 22:06 Dose: 40 mg Documented by: [id number] Discontinued Medications Aspirin (Aspirin Chew 324 Mg) 324 mg PO NOW STA Stop: 12/26/21 09:29 Last Admin: 12/26/21 09:46 Dose: 324 mg Documented by: [id number] Atorvastatin Calcium (Atorvastatin 40 Mg Tab) 80 mg PO HS [facility] Stop: 01/25/22 20:59 Last Admin: 12/26/21 20:36 Dose: Not Given Documented by: [id number] Clopidogrel Bisulfate (Clopidogrel Bisulfate 300 Mg Tab) 300 mg PO NOW STA Stop: 12/26/21 09:30 Last Admin: 12/26/21 09:46 Dose: 300 mg Documented by: [id number] Heparin Sodium (Porcine) (Heparin Sod (Porcine) 1000 Unit/Ml) 4,000 units IV NOW ONE; Protocol Stop: 12/28/21 05:46 Last Admin: 12/28/21 05:51 Dose: 4,000 units Documented by: [id number] Cosigned by: [id number] Sodium Chloride (Nss 1000ml) 500 mls @ 999 mls/hr IV .Q31M ONE Stop: 12/27/21 01:01 Last Infusion: 12/27/21 01:19 Dose: 0 mls/hr Documented by: [id number] Admin: 12/27/21 00:48 Dose: 999 mls/hr Documented by: [id number] Potassium Chloride (K Kevin / Wtr) 10 meq in 100 mls @ 100 mls/hr IV Q1H [facility]; Protocol Stop: 12/27/21 03:30 Last Infusion: 12/27/21 04:29 Dose: 0 mls/hr Documented by: [id number] Admin: 12/27/21 03:29 Dose: 100 mls/hr Documented by: [id number] Infusion: 12/27/21 03:28 Dose: 100 mls/hr Documented by: [id number] Admin: 12/27/21 02:28 Dose: 100 mls/hr Documented by: [id number] Magnesium Sulfate/Dextrose (Magnesium Sulfate / D5w) 1 gm in 100 mls @ 50 mls/hr IV ONE ONE Stop: 12/27/21 03:30 Last Infusion: 12/27/21 04:29 Dose: 0 mls/hr Documented by: [id number] Admin: 12/27/21 02:29 Dose: 50 mls/hr Documented by: [id number] Heparin Sodium/Dextrose (Heparin Sodium/Dextrose) 25,000 units in 500 mls @ 17 mls/hr IV .Q24H [facility]; Protocol Stop: 01/26/22 20:59 Last Titration: 12/28/21 08:59 Dose: 0 units/hr, 0 mls/hr Documented by: [id number] Cosigned by: [id number] Titration: 12/28/21 07:08 Dose: 850 units/hr, 17 mls/hr Documented by: [id number] Cosigned by: [id number] Admin: 12/28/21 04:50 Dose: 850 units/hr, 17 mls/hr Documented by: [id number] Cosigned by: [id number] Titration: 12/28/21 04:50 Dose: 700 units/hr, 14 mls/hr Documented by: [id number] Cosigned by: [id number] Admin: 12/27/21 22:06 Dose: 700 units/hr, 14 mls/hr Documented by: [id number] Cosigned by: [id number] Insulin Aspart (Insulin Aspart Per Unit) 0 units SC ACHS [facility] Stop: 01/25/22 11:59 Last Admin: 12/26/21 13:50 Dose: 2 units Documented by: [id number] Cosigned by: [id number] Insulin Aspart (Insulin Aspart Per Unit) 0 units SC Q6 [facility] Stop: 01/25/22 11:59 Last Admin: 12/27/21 06:19 Dose: 1 units Documented by: [id number] Cosigned by: [id number] Admin: 12/27/21 00:16 Dose: 1 units Documented by: [id number] Cosigned by: [id number] Admin: 12/26/21 18:25 Dose: Not Given Documented by: [id number] Insulin Glargine (Insulin Glargine Solostar 100 Units/Ml 3 Ml Pen) 15 units SC BID [facility] Stop: 01/25/22 12:14 Last Admin: 12/26/21 13:50 Dose: 15 units Documented by: [id number] Cosigned by: [id number] Insulin Glargine (Insulin Glargine Solostar 100 Units/Ml 3 Ml Pen) 15 units SC QAM [facility] Stop: 01/26/22 08:59 Last Admin: 12/27/21 09:18 Dose: 15 units Documented by: [id number] Cosigned by: [id number] Insulin Glargine (Insulin Glargine Solostar 100 Units/Ml 3 Ml Pen) 0 units SC HS [facility]; Protocol Stop: 01/26/22 20:59 Last Admin: 12/27/21 21:05 Dose: Not Given Documented by: [id number] Ioversol (Optiray 320 125ml) 120 ml IV ONCE ONE Stop: 12/26/21 07:45 Last Admin: 12/26/21 07:45 Dose: 120 ml Documented by: [id number] Metoprolol Tartrate (Metoprolol Tartrate 1 Mg/Ml Vial) 5 mg IV NOW STA; Protocol Stop: 12/26/21 10:17 Last Admin: 12/26/21 10:22 Dose: 5 mg Documented by: [id number] Miscellaneous (Heparin Infusion~Stop Order) 1 ea N/A ONE ONE Stop: 12/28/21 09:16 Last Admin: 12/28/21 10:00 Dose: 1 ea Documented by: [id number] Imaging Data Radiologist's Impression: Head CT 12/26/21 07:16 CT head/brain wo con, CT angio neck with con, CT angio head w con CLINICAL HISTORY: 76 years-old Female with Stroke Like Symptoms. Acute strokelike symptoms TECHNIQUE: Multiple axial CT images of the head were obtained without contrast. CTA of the head and neck was also obtained following the intravenous administration of 120 mL Optiray 320. A dose lowering technique was utilized adhering to the principles of ALARA. All measurements were obtained according to NASCET criteria. 3-D coronal and sagittal MIPS were obtained from the axial data set and were submitted for review. CT DOSE: 1113.75 mGy.cm COMPARISON: None. FINDINGS: CT HEAD: No acute intracranial hemorrhage, midline shift, intracranial mass, hydrocephalus, territorial ischemia or abnormal extra-axial collection. Mild involutional changes. Prominent perivascular spaces are noted bilaterally. Prior bilateral lens repair. The calvarium is intact. The paranasal sinuses, mastoid air cells, and middle ear cavities are clear. Surgical clips of the left axilla noted on the registered nurse cardiac telemetry localizer images. Cardiomegaly. Subacute appearing fracture of the lateral right fifth rib. CTA HEAD AND NECK: Mild atherosclerosis of the thoracic aortic arch. Patency of the innominate and imaged subclavian arteries. Atherosclerosis of the common carotid arteries. There is moderate atherosclerotic plaque of the left carotid bulb and proximal left ICA resulting in less than 50% stenosis. Extensive atherosclerotic plaque of the right carotid bulb and proximal right ICA results in 50% luminal narrowing. Moderate atherosclerosis of the cavernous and supraclinoid segments without high-grade stenosis. The middle and anterior cerebral arteries are patent. 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 No aneurysm rupture. There is trifurcation of the A2 segments. Atherosclerotic plaque at the origin of the right vertebral artery results in approximately 50% stenosis. The right vertebral artery is dominant. There is approximately 50% luminal narrowing of the V2 segment right vertebral artery at the level of C3 on image 227 series 6 secondary to facet arthrosis. The origin of the left vertebral artery is not well visualized secondary to respiratory motion artifact. The vertebral, basilar and right posterior cerebral artery appear patent. Age-indeterminate occlusion of the left vertebral artery P1 segment on image 99 series 5. No distal reconstitution identified. The cerebral venous sinuses are patent. There is no abnormal intracranial enhancement. No pneumothorax. Heterogeneous thyroid with numerous subcentimeter nodules. The right lobe of the thyroid is either atrophic or surgically absent. Multilevel degenerative changes of the cervical spine. IMPRESSION: 1. No acute intracranial abnormality. 2. Age-indeterminate occlusion of the P1 segment of the left posterior cerebral artery. 3. 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 No aneurysm rupture. 4. Atherosclerotic plaque of the right carotid bulb results in 50% luminal narrowing of the proximal cervical segment of the right ICA. ACT 112: Negative or not required by law. The above report was generated using voice recognition software. It may contain grammatical, syntax or spelling errors. Electronically signed by: Edgar Guerra M.D. 12/26/2021 8:08 AM Head CTA 12/26/21 07:16 CT head/brain wo con, CT angio neck with con, CT angio head w con CLINICAL HISTORY: 76 years-old Female with Stroke Like Symptoms. Acute strokelike symptoms TECHNIQUE: Multiple axial CT images of the head were obtained without contrast. CTA of the head and neck was also obtained following the intravenous administration of 120 mL Optiray 320. A dose lowering technique was utilized adhering to the principles of ALARA. All measurements were obtained according to NASCET criteria. 3-D coronal and sagittal MIPS were obtained from the axial data set and were submitted for review. CT DOSE: 1113.75 mGy.cm COMPARISON: None. FINDINGS: CT HEAD: No acute intracranial hemorrhage, midline shift, intracranial mass, hydrocephalus, territorial ischemia or abnormal extra-axial collection. Mild involutional changes. Prominent perivascular spaces are noted bilaterally. Prior bilateral lens repair. The calvarium is intact. The paranasal sinuses, mastoid air cells, and middle ear cavities are clear. Surgical clips of the left axilla noted on the registered nurse cardiac telemetry localizer images. Cardiomegaly. Subacute appearing fracture of the lateral right fifth rib. CTA HEAD AND NECK: Mild atherosclerosis of the thoracic aortic arch. Patency of the innominate and imaged subclavian arteries. Atherosclerosis of the common carotid arteries. There is moderate atherosclerotic plaque of the left carotid bulb and proximal left ICA resulting in less than 50% stenosis. Extensive atherosclerotic plaque of the right carotid bulb and proximal right ICA results in 50% luminal narrowing. Moderate atherosclerosis of the cavernous and supraclinoid segments without high-grade stenosis. The middle and anterior cerebral arteries are patent. 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 No aneurysm rupture. There is trifurcation of the A2 segments. Atherosclerotic plaque at the origin of the right vertebral artery results in approximately 50% stenosis. The right vertebral artery is dominant. There is approximately 50% luminal narrowing of the V2 segment right vertebral artery at the level of C3 on image 227 series 6 secondary to facet arthrosis. The origin of the left vertebral artery is not well visualized secondary to respiratory motion artifact. The vertebral, basilar and right posterior cerebral artery appear patent. Age-indeterminate occlusion of the left vertebral artery P1 segment on image 99 series 5. No distal reconstitution identified. The cereb ral venous sinuses are patent. There is no abnormal intracranial enhancement. No pneumothorax. Heterogeneous thyroid with numerous subcentimeter nodules. The right lobe of the thyroid is either atrophic or surgically absent. Multilevel degenerative changes of the cervical spine. IMPRESSION: 1. No acute intracranial abnormality. 2. Age-indeterminate occlusion of the P1 segment of the left posterior cerebral artery. 3. 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 No aneurysm rupture. 4. Atherosclerotic plaque of the right carotid bulb results in 50% luminal narrowing of the proximal cervical segment of the right ICA. ACT 112: Negative or not required by law. The above report was generated using voice recognition software. It may contain grammatical, syntax or spelling errors. Electronically signed by: Edgar Guerra M.D. 12/26/2021 8:08 AM Neck CTA 12/26/21 07:16 CT head/brain wo con, CT angio neck with con, CT angio head w con CLINICAL HISTORY: 76 years-old Female with Stroke Like Symptoms. Acute strokelike symptoms TECHNIQUE: Multiple axial CT images of the head were obtained without contrast. CTA of the head and neck was also obtained following the intravenous administration of 120 mL Optiray 320. A dose lowering technique was utilized adhering to the principles of ALARA. All measurements were obtained according to NASCET criteria. 3-D coronal and sagittal MIPS were obtained from the axial data set and were submitted for review. CT DOSE: 1113.75 mGy.cm COMPARISON: None. FINDINGS: CT HEAD: No acute intracranial hemorrhage, midline shift, intracranial mass, hydrocephalus, territorial ischemia or abnormal extra-axial collection. Mild involutional changes. Prominent perivascular spaces are noted bilaterally. Prior bilateral lens repair. The calvarium is intact. The paranasal sinuses, mastoid air cells, and middle ear cavities are clear. Surgical clips of the left axilla noted on the registered nurse cardiac telemetry localizer images. Cardiomegaly. Subacute appearing fracture of the lateral right fifth rib. CTA HEAD AND NECK: Mild atherosclerosis of the thoracic aortic arch. Patency of the innominate and imaged subclavian arteries. Atherosclerosis of the common carotid arteries. There is moderate atherosclerotic plaque of the left carotid bulb and proximal left ICA resulting in less than 50% stenosis. Extensive atherosclerotic plaque of the right carotid bulb and proximal right ICA results in 50% luminal narrowing. Moderate atherosclerosis of the cavernous and supraclinoid segments without high-grade stenosis. The middle and anterior cerebral arteries are patent. 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 No aneurysm rupture. There is trifurcation of the A2 segments. Atherosclerotic plaque at the origin of the right vertebral artery results in approximately 50% stenosis. The right vertebral artery is dominant. There is approximately 50% luminal narrowing of the V2 segment right vertebral artery at the level of C3 on image 227 series 6 secondary to facet arthrosis. The origin of the left vertebral artery is not well visualized secondary to respiratory motion artifact. The vertebral, basilar and right posterior cerebral artery appear patent. Age-indeterminate occlusion of the left vertebral artery P1 segment on image 99 series 5. No distal reconstitution identified. The cerebral venous sinuses are patent. There is no abnormal intracranial enhancement. No pneumothorax. Heterogeneous thyroid with numerous subcentimeter nodules. The right lobe of the thyroid is either atrophic or surgically absent. Multilevel degenerative changes of the cervical spine. IMPRESSION: 1. No acute intracranial abnormality. 2. Age-indeterminate occlusion of the P1 segment of the left posterior cerebral artery. 3. 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 No aneurysm rupture. 4. Atherosclerotic plaque of the right carotid bulb results in 50% luminal narrowing of the proximal cervical segment of the right ICA. ACT 112: Negative or not required by law. The above report was generated using voice recognition software. It may contain grammatical, syntax or spelling errors. Electronically signed by: Edgar Guerra M.D. 12/26/2021 8:08 AM Blood Pressure Blood Pressure Findings: Elevated blood pressure Blood Pressure Disposition: further management by hospitalist Discharge Plan Visit Data Chief Complaint: Neuro Symptoms/Deficit Stated Complaint: STROKE SX ED Provider: Tanesha Rios Discharge Problem: Acute CVA (cerebrovascular accident), Atrial fibrillation with RVR, Atrial fibrillation, new onset, Fall Patient Disposition: Admitted As Inpatient Discharge Instructions Interventions: ED Discharge Assessment Last Done: 12/26/21 11:13 Discharge Problem: Fall Qualifiers: Encounter type: initial encounter Qualified Code(s): W19.XXXA - Unspecified fall, initial encounter
[2021-12-26] MEDS ORDERED: OPTIRAY 320 125ml IV ONE (07:44)
[2021-12-26 07:52] LABS: iSTAT Creatinine 1.4 mg/dl (0.6-1.3); iSTAT Hemoglobin 13.9 g/dl (12.0-16.0); iSTAT Ionized Calcium 1.23 mmol/l (1.12-1.32); iSTAT Potassium 3.3 mmol/L (3.3-5.0)
[2021-12-26 08:02] LABS: Basophils # (auto) 0.01 K/uL (0-0.2); Basophils % (auto) 0.1 %; Eosinophils # (auto) 0.03 K/uL (0-0.5); Eosinophils % (auto) 0.2 %; Hematocrit (blood only) 39.5 % (37-47); Hemoglobin 12.9 g/dL (12.0-16.0); Immature Granulocytes # (auto) 0.05 K/uL (0.00-0.02); Immature Granulocytes % (auto) 0.3 %; Lymphocytes # (auto) 1.88 K/uL (1.2-3.4); Lymphocytes % (auto) 11.8 %; Mean Corpuscular Hemoglobin 27.7 pg (25-34); Mean Corpuscular Hgb Conc 32.7 g/dL (32-36); Mean Corpuscular Volume 84.9 fL (80-100); Mean Platelet Volume 11.1 fL (7.4-10.4); Monocytes # (auto) 0.78 K/uL (0.11-0.59); Monocytes % (auto) 4.9 %; Neutrophils # (auto) 13.24 K/uL (1.4-6.5); Neutrophils % (auto) 82.7 %; Platelet Count 338 K/uL (130-400); RDW Coefficient of Variation 13.3 % (11.5-14.5); Red Blood Count 4.65 M/uL (4.2-5.4); White Blood Count 15.99 K/uL (4.8-10.8)
--- NOTE | 2021-12-26 08:09 | CT Scan Report ---
CT head/brain wo con, CT angio neck with con, CT angio head w con CLINICAL HISTORY: 76 years-old Female with Stroke Like Symptoms. Acute strokelike symptoms TECHNIQUE: Multiple axial CT images of the head were obtained without contrast. CTA of the head and n darya was also obtained following the intravenous administration of 120 mL Optiray 320. A dose lowering technique was utilized adhering to the principles of ALARA. All measurements were obtained according to NASCET criteria. 3-D coronal and sagittal MIPS were obtained from the axial data set and were sub mitted for review. CT DOSE: 1113.75 mGy.cm COMPARISON: None. FINDINGS: CT HEAD: No acute intracranial hemorrhage, midline shift, intracranial mass, hydrocephalus, territorial ischem ia or abnormal extra-axial collection. Mild involutional changes. Prominent perivascular spaces are n oted bilaterally. Prior bilateral lens repair. The calvarium is intact. The paranasal sinuses, masto id air cells, and middle ear cavities are clear. Surgical clips of the left axilla noted on the funeral arrangement director localizer images. Cardiomegaly. Subacute appearing fracture of the lateral right fifth rib. CTA HEAD AND NECK: Mild atherosclerosis of the thoracic aortic arch. Patency of the innominate and imaged subclavian art eries. Atherosclerosis of the common carotid arteries. There is moderate atherosclerotic plaque of th e left carotid bulb and proximal left ICA resulting in less than 50% stenosis. Extensive atherosclero tic plaque of the right carotid bulb and proximal right ICA results in 50% luminal narrowing. Moderat e atherosclerosis of the cavernous and supraclinoid segments without high-grade stenosis. The middle and anterior cerebral arteries are patent. 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 No aneurysm rupture. There is trifurcation of the A2 segm ents. Atherosclerotic plaque at the origin of the right vertebral artery results in approximately 50% stenosis. The right vertebral artery is dominant. There is approximately 50% luminal narrowing of th e V2 segment right vertebral artery at the level of C3 on image 227 series 6 secondary to facet arthr osis. The origin of the left vertebral artery is not well visualized secondary to respiratory motion artifact. The vertebral, basilar and right posterior cerebral artery appear patent. Age-indeterminate occlusion of the left vertebral artery P1 segment on image 99 series 5. No distal reconstitution margarita ntified. The cerebral venous sinuses are patent. There is no abnormal intracranial enhancement. No pneumothorax. Heterogeneous thyroid with numerous subcentimeter nodules. The right lobe of the thy roid is either atrophic or surgically absent. Multilevel degenerative changes of the cervical spine. IMPRESSION: 1. No acute intracranial abnormality. 2. Age-indeterminate occlusion of the P1 segment of the left posterior cerebral artery. 3. 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 No aneurysm rupture. 4. Atherosclerotic plaque of the right carotid bulb results in 50% luminal narrowing of the proximal cervical segment of the right ICA. ACT 112: Negative or not required by law. The above report was generated using voice recognition software. It may contain grammatical, syntax o r spelling errors. Electronically signed by: Edgar Guerra M.D. 12/26/2021 8:08 AM
[2021-12-26 08:21] LABS: Albumin Level 4.1 gm/dl (3.4-5.0); BUN Creatinine Ratio 28.1 (10-20); Bilirubin,Total 0.6 mg/dl (0.2-1.0); Calcium 10.2 mg/dl (8.5-10.1); Creatinine Clr Calc Pharmacy 30.6 ml/min; Est GFR (African American) 43.5 ml/min; Est GFR (Non-African American) 37.5 ml/min; Magnesium 1.9 mg/dl (1.7-2.4); Potassium 3.4 mmol/L (3.5-5.1); Total Protein 8.1 gm/dl (6.0-8.3)
[2021-12-26 08:23] LABS: Partial Thromboplastin Ratio 0.9; Partial Thromboplastin Time 24.2 Seconds (21.0-31.0); Prothrombin Time 10.7 Seconds (9.0-12.0)
[2021-12-26 08:29] LABS: Troponin I High Sensitivity 144.6 pg/ml (0-14)
[2021-12-26] MEDS ORDERED: ASPIRIN CHEW 324 MG PO STA (09:28)
[2021-12-26] MEDS ORDERED: CLOPIDOGREL BISULFATE 300 MG TAB PO STA (09:29)
[2021-12-26] MEDS ORDERED: PHARMACIST DISCHARGE MED REC CONSULT PRN (09:59)
--- NOTE | 2021-12-26 09:59 | History & Physical Report ---
Date of Service December 26, 2021 Assessment & Plan (1) Stroke: Plan: Aphasia, right sided weakness in a 76 yo female who developed A. fib while in the room. Patient has no symptoms of her A. fib (aside from her stroke). Likely patient has been going in an out of a fib prior to this episode. Appreciate input from Tele stroke, no indication for transfer as likely posterior circulation and difficult to retrieve thrombus and no indication for tpa as out of window. stroke protocol ordered. awaiting MRI. Thankfully, patient does not have significant life altering symptoms. given actue stroke, will need to start anticoagulation likely in either 24-48 hours, depending on agent. will defer to Neuro. Dr. Hood will f/u in AM. (2) Atrial fibrillation with rapid ventricular response: Plan: Newly diagsnosed on thsi admission, will consult Cardio. will resume beta blockers but due to facial droop patient is NPO pending speech eval. will place on IV metoprolol 5 mg IV Q6H. (3) Hypertension: Plan: holding BP meds due to permissive hypertension. (4) Dyslipidemia: Plan: switched to atorvastatin. check flp (5) Diabetes mellitus type 2, insulin dependent: Plan: will consult glycemic control History of Present Illness Chief Complaint: lower extremity weakness Primary Care Provider: Azul Restrepo, This is a pleasant 76 yo female with PMH DM2, HTN, BMI>30, presents to the ER with right sided weakness. Patient reports she was her normal self and fell asleep near 10 PM. When she woke up she stated she couldn't get out of bed, and had weakness in her lower extremity as well as weakness in her right arm. Family noticed slurring in her speech, which prompted her to come to the ER. Allergies Allergy/AdvReac Type Severity Reaction Status Date / Time Sulfa (Sulfonamide Allergy Mild Rash Verified 08/17/21 11:27 Antibiotics) Home Medications Medication Instructions Recorded Confirmed Type aspirin 81 mg chewable tablet 81 mg PO DAILY 02/04/19 12/26/21 History (Aspirin Childrens) [id number]-mvijhhpt-[id number] 1 tab PO QAM 02/04/19 12/26/21 History tablet (Multivitamin 50 Plus) omega-3 360 wz-vsh-qpo-fish oil 1 cap PO BID 02/04/19 12/26/21 History 1,200 mg capsule,delayed release (Fish Oil) glucose 4 gram chewable tablet 4 g PO Q15M PRN #20 tab 11/06/20 12/26/21 Rx (Dex4 Glucose) amlodipine 2.5 mg tablet 2.5 mg PO DAILY #90 tab 03/27/21 12/26/21 Rx hydrochlorothiazide 25 mg tablet 25 mg PO DAILY #90 tab 03/27/21 12/26/21 Rx lancets (Accu-Chek Multiclix #100 ea 03/27/21 08/17/21 Rx Lancet) losartan 100 mg tablet 100 mg PO DAILY #90 tab 03/27/21 12/26/21 Rx pen needle, diabetic 29 gauge x #200 ea 03/27/21 08/17/21 Rx 1/2" (BD Ultra-Fine Original Pen Needle) simvastatin 40 mg tablet 40 mg PO HS #90 tab 03/27/21 12/26/21 Rx metformin 1,000 mg tablet 1,000 mg PO BID 90 Days #180 tab 05/04/21 12/26/21 Rx insulin aspart U-100 100 unit/mL See Rx Instructions SUBCUT BID #60 08/17/21 12/26/21 Rx (3 mL) subcutaneous pen (Novolog ml Flexpen U-100 Insulin aspart) blood sugar diagnostic (OneTouch #200 ea 10/22/21 Rx Ultra Test) metoprolol tartrate 100 mg tablet 100 mg PO BID #180 tab 11/26/21 12/26/21 Rx Past Med/Surg History Medical History Cystocele Diabetes mellitus, type 2 Dyslipidemia Glaucoma History of breast cancer Hypertension Osteoarthritis Osteopenia Surgical History History of colonoscopy History of left breast biopsy History of lumpectomy of left breast 2006 with lymph nodes removed History of lumpectomy of right breast 2000 with lymph nodes removed History of right breast biopsy History of tooth extraction History of total vaginal hysterectomy (TVH) Status post glaucoma surgery bilt Family History Aunt Family history of pseudocholinesterase deficiency 2 aunts "difficulty coming out of it" Family/Other Breast cancer Pancreatic cancer Father Myocardial infarction Mother No problems noted. Unknown Colorectal cancer Denies family history of Ovarian cancer Prostate cancer Social History Smoking Status: Never smoker Second Hand Exposure: No; Hx Alcohol Use: No Hx Substance Use: No Preferred Language: Tam[place] Communication Ability: Effective Hearing Ability: Normal Annual Greenhouse Manager Required: No Beliefs That Will Affect Care: None marital status: Current Living Situation: Spouse current occupational status: retired How many Children do You have: 1 Other Information That Helps Us Care for You: No Feels Safe at Home: Yes Safety Concerns: Feels Safe At This Time Childhood Exposure to Second-Hand Smoke: No Dental Care, Regularly: Yes Physical Activity Frequency: Daily Physical Activity Frequency Comment: bike pedaling Seatbelt Use: always Sunscreen Use: Yes Assistive Devices: None Review of Systems Constitutional: no fever Eyes: no blind spots Ear, Nose, Mouth, Throat: no ear pain Respiratory: no cough Cardiovascular: no chest pain and no chest pain with activity Gastrointestinal: no abdominal pain Genitourinary: no dysuria Musculoskeletal: + muscle weakness; no back pain Integumentary: no acne Neurologic: + localized weakness; no loss of sensation, no paresthesia, no restless legs and no syncope Psychiatric: no behavioral changes Endocrine: no fatigue Hematologic / Lymphatic: no easy bleeding Allergy / Immunological: no lip swelling Physical Exam Constitutional: WD/WN, vitals as above Eyes: PERRL, conjunctivae normal, anicteric sclerae ENMT: external ear and nose normal, oropharynx normal Neck: trachea midline, no thyromegaly Respiratory: normal respiratory effort, lungs clear to auscultation Cardiovascular: Rate/Rhythm: + tachycardic Heart Sounds: normal S1 and normal S2 Gastrointestinal (Abdomen): normal bowel sounds, soft, nontender, no hepatosplenomegaly Musculoskeletal: no cyanosis or clubbing, extremities motor strength 5/5 (except for right arm 4/5) Skin: no rashes, warm and dry Neurologic: moves all extremities (4/5 upper extremity) and awake Speech / Cognition: + abnormal speech Cranial Nerves: PERRL and tongue midline Lymphatic: no cervical or axillary lymphadenopathy Results & Data Results & Data ([facility]) Vital Signs (Past 12 Hours) Vital Signs Temp Pulse Resp BP Pulse Ox 12/26/21 08:30 77 15 153/85 H 98 12/26/21 08:00 82 21 160/90 H 99 12/26/21 07:30 84 18 154/85 H 99 12/26/21 07:06 36.8 C 84 17 147/95 H 99 PG Care Time/CCT Total # of Minutes Spent Total Time Spent with Patient: Total time spent is greater than 50% in coordination of care (as documented) at patient's floor/unit and/or counseling patient: Coding Level of Care Code 93945 Initial Inpt Care Lvl 3 Diagnoses Stroke I63.9 Atrial fibrillation with rapid ventricular response I48.91 Hypertension I10 Dyslipidemia E78.5 Diabetes mellitus type 2, insulin dependent E11.9; Z79.4
[2021-12-26] MEDS ORDERED: PHARMACY GLYCEMIC MGMT CONSULT PRN (10:15)
[2021-12-26] MEDS ORDERED: METOPROLOL TARTRATE 1 MG/ML VIAL IV STA (10:16)
[2021-12-26] MEDS ORDERED: CARBOHYDRATES FOR HYPOGLYCEMIA PO PRN (11:45)
[2021-12-26] MEDS ORDERED: GLUCAGON FOR INJ 1 MG VIAL IM PRN (11:45)
[2021-12-26] MEDS ORDERED: GLUCOSE 40% GEL 15 GM TUBE PO PRN (11:45)
[2021-12-26] MEDS ORDERED: DEXTROSE 50% 50 ML SYRINGE IV PRN (11:45)
[2021-12-26] MEDS ORDERED: GLUCOSE 10 TABS/TUBE PO PRN (11:45)
[2021-12-26] MEDS ORDERED: INSULIN ASPART PER UNIT SC SCH (12:00)
[2021-12-26] MEDS ORDERED: INSULIN GLARGINE SOLOSTAR 100 UNITS/ML 3 ML PEN SC SCH (12:15)
--- NOTE | 2021-12-26 13:56 | Pharmacy Report ---
Pharmacy Glycemic Short Note 2 - Date of Service December 26, 2021 - Glycemic Short BSG Results (Last 24 hours): 12/26/21 12/26/21 12/26/21 07:30 07:39 11:52 Glucose 214 H POC Glucose 173 H POC Glucose (other) 226 H OUTPATIENT ANTIDIABETIC REGIMEN: * Novolog 46 units SC qAM, 14 units SC qPM * Metformin 1 g PO BIDM * HbA1c: 6.8% (08/17/21) ASSESSMENT: * CS is a 76 year old female presented to ED with right facial droop, slurred speech, and ataxia * Currently NPO as a precaution in light of facial droop * BSGs of 226 on admission, 173 mg/dL at lunchtime * HbA1c suggests good outpatient glycemic control with ~60 units of insulin/day + metformin as an outpatient PLAN FOR INPATIENT GLYCEMIC CONTROL: * Hold outpatient oral diabetes medications * Basal insulin * Lantus 15 units SC x 1 * Reassess in AM * Bolus insulin * NovoLog per scale ACHS or Q6hrs while NPO * Goal Range: Low 110 mg/dL - High 140 mg/dL * Correction Factor: 25 mg/dL/unit * Nutritional / Prandial insulin per carb ratio of 1 unit per 9 grams CHO consumed
[2021-12-26] MEDS ORDERED: METOPROLOL TARTRATE 1 MG/ML VIAL IV SCH (18:00)
[2021-12-26] MEDS: INSULIN ASPART PER UNIT SC SCH (18:25)
--- NOTE | 2021-12-26 19:14 | Cardiology Consultation ---
Date of Consultation December 26, 2021 Assessment & Plan (1) Atrial fibrillation with rapid ventricular response: (2) Hypertension: (3) Dyslipidemia: (4) Elevated troponin: (5) Stroke: ASSESSMENT/PLAN: 1. AFib with RVR: Discussed the diagnosis with her. Recommended resuming her home dose of metoprolol 100 mg twice daily however she failed her speech evaluation. Can use intravenous metoprolol 5 mg IV q.4 or q.6 hours for heart rate control. If uncontrollable, can use diltiazem drip without bolus. Recommend anticoagulation for stroke risk reduction. While hospitalized, recommend heparin drip. Discussed with Dr. Cook of the hospitalist service. He plans on starting at some point during this hospital stay but prefers to hold off due to risk of hemorrhagic conversion with her stroke. Formal echo read is pending. 2. Hypertension: Blood pressure mildly elevated. Will defer to primary hospitalist service given acute stroke. 3. Dyslipidemia: Continue high-intensity statin therapy given stroke. 4. Elevated troponin: She did not present with acute coronary syndrome. Elevated troponin likely due to stroke or demand ischemia in the setting of AFib with RVR. No ischemic evaluation necessary at this time. 5. Stroke: As per Neurology and primary hospitalist service. 6. Disposition: Cardiology will continue to follow. Patient care communicated with Dr. Cook of the primary hospitalist service, and also discussed with nurse Shipman. Offered to discuss with patient's family via telephone but she declined. Thank you for allowing me to participate in the care of your patient. Please call for any other questions or concerns. Sincerely, Kendall Lakhani M.D. History of Present Illness Reason for Consultation: Atrial fibrillation Requesting Physician: Rogerio Cook Attending Physician: Rogerio Cook History of Present Illness Mrs. Morrissey is a pleasant 76-year-old female with a history significant for type 2 diabetes, hypertension, dyslipidemia, and breast cancer (bilateral lumpectomy and XRT). She was admitted on 12/26/2021 with stroke. At the time of this consultation, there is very limited documented provider information. History was obtained by talking with patient, discussing with primary hospitalist, and also nursing staff. At approximately midnight to 1:00 a.m. this morning, she got up out of bed and fell to her knees. She could not get up. Her right arm and leg were very weak. She had no chest pain, shortness of breath, syncope, or palpitations. When she arrived at the hospital, there was reportedly slurred speech and facial droop as well as weakness within her right upper and lower extremity. A stroke alert was performed. The exact recommendations from the stroke alert are not well known to me. It does not appear as though lytics were administered. She underwent speech evaluation and apparently is unable to safely swallow at this time and therefore is NPO. She typically takes metoprolol tartrate 100 mg twice daily at home but her last dose was in the evening of 12/25/2021. When she arrived to this hospital, initial ECG on 12/25/2021 at 7:18 a.m. demonstrated sinus rhythm at 81 beats per minute. While still in the emergency department, she developed atrial fibrillation and repeat ECG on 12/26/2021 demonstrated such with rapid ventricular response at 115 beats per minute. She has remained in atrial fibrillation with rapid ventricular response and is completely asymptomatic in this regard. She has no palpitations, shortness of breath, or other cardiac symptom. She is unaware of ever being diagnosed with atrial fibrillation in the past. She currently is not on anticoagulation therapy. She does not recall having history of stroke or TIA or any cardiac issue. She denies melena, hematochezia, hematuria, or other bleeding. Review of systems: As above. Review of systems otherwise negative/unremarkable. Family history: Noncontributory. Social history: She denies tobacco, alcohol, or drug abuse. She lives at home with her . Her daughter, Erica, is a nurse. Her son is a pharmacist. She was unaccompanied in her hospital room. Allergies Allergy/AdvReac Type Severity Reaction Status Date / Time Sulfa (Sulfonamide Allergy Mild Rash Verified 08/17/21 11:27 Antibiotics) Home Medications Medication Instructions Recorded Confirmed Type aspirin 81 mg chewable tablet 81 mg PO DAILY 02/04/19 12/26/21 History (Aspirin Childrens) wyxlqzqlymaq-kmenibna-rvrpja 1 tab PO QAM 02/04/19 12/26/21 History tablet (Multivitamin 50 Plus) omega-3 360 tz-wvn-lgk-fish oil 1 cap PO BID 02/04/19 12/26/21 History 1,200 mg capsule,delayed release (Fish Oil) glucose 4 gram chewable tablet 4 g PO Q15M PRN #20 tab 11/06/20 12/26/21 Rx (Dex4 Glucose) amlodipine 2.5 mg tablet 2.5 mg PO DAILY #90 tab 03/27/21 12/26/21 Rx hydrochlorothiazide 25 mg tablet 25 mg PO DAILY #90 tab 03/27/21 12/26/21 Rx lancets (Accu-Chek Multiclix #100 ea 03/27/21 08/17/21 Rx Lancet) losartan 100 mg tablet 100 mg PO DAILY #90 tab 03/27/21 12/26/21 Rx pen needle, diabetic 29 gauge x #200 ea 03/27/21 08/17/21 Rx 1/2" (BD Ultra-Fine Original Pen Needle) simvastatin 40 mg tablet 40 mg PO HS #90 tab 03/27/21 12/26/21 Rx metformin 1,000 mg tablet 1,000 mg PO BID 90 Days #180 tab 05/04/21 12/26/21 Rx insulin aspart U-100 100 unit/mL See Rx Instructions SUBCUT BID #60 08/17/21 12/26/21 Rx (3 mL) subcutaneous pen (Novolog ml Flexpen U-100 Insulin aspart) blood sugar diagnostic (OneTouch #200 ea 10/22/21 Rx Ultra Test) metoprolol tartrate 100 mg tablet 100 mg PO BID #180 tab 11/26/21 12/26/21 Rx Patient History Medical History Cystocele Diabetes mellitus, type 2 Dyslipidemia Glaucoma History of breast cancer Hypertension Osteoarthritis Osteopenia Surgical History History of colonoscopy History of left breast biopsy History of lumpectomy of left breast History of lumpectomy of right breast History of right breast biopsy History of tooth extraction History of total vaginal hysterectomy (TVH) Status post glaucoma surgery Family History Aunt Family history of pseudocholinesterase deficiency Family/Other Breast cancer Pancreatic cancer Father Myocardial infarction Mother No problems noted. Unknown Colorectal cancer Denies family history of Ovarian cancer Prostate cancer Social History Smoking Status: Never smoker Second Hand Exposure: No; Hx Alcohol Use: No Hx Substance Use: No Preferred Language: Lao Communication Ability: Effective Hearing Ability: Normal Sawyer Helper Required: No Beliefs That Will Affect Care: None marital status: Current Living Situation: Spouse current occupational status: retired How many Children do You have: 1 Other Information That Helps Us Care for You: No Feels Safe at Home: Yes Safety Concerns: Feels Safe At This Time Childhood Exposure to Second-Hand Smoke: No Dental Care, Regularly: Yes Physical Activity Frequency: Daily Physical Activity Frequency Comment: bike pedaling Seatbelt Use: always Sunscreen Use: Yes Assistive Devices: None Physical Exam Physical Exam: Gen.: No acute distress. Alert. Slight slurring of her speech. HEENT: Anicteric sclera. Neck: No JVD. No bruits. Normal carotid upstrokes bilaterally. Cardiac: PMI was nondisplaced. No ventricular heave. Irregularly irregular and tachycardic. Normal S1-S2. No murmurs, rubs, or gallops. Pulmonary: Clear to auscultation bilaterally without wheezes, rales, or rhonchi. Abdomen: Soft, nontender, nondistended, with normoactive bowel sounds. No bruits noted. Extremities: 2+ radial pulses bilaterally. 2+ posterior tibialis pulses bilaterally. No edema or cyanosis. Psychiatric: Affect appears appropriate. Neuro: A full neuro exam was not performed. Her right arm however was notably weak as she was unable to control her movements. Results & Data ([facility]) Vital Signs (Past 12 Hours) Vital Signs Temp Pulse Pulse Resp BP BP Pulse Ox 12/26/21 18:08 135 H 12/26/21 17:59 135 H 132/98 12/26/21 16:16 36.6 C 129 H 18 154/83 H 94 12/26/21 12:15 36.5 C 107 H 20 149/83 H 96 12/26/21 11:13 119 H 18 127/69 98 12/26/21 11:00 107 H 15 138/81 96 12/26/21 10:55 101 H 21 150/113 H 97 12/26/21 10:50 116 H 18 128/92 96 12/26/21 10:45 110 H 23 157/111 H 97 12/26/21 10:40 99 H 21 152/105 H 97 12/26/21 10:35 116 H 18 164/105 H 96 12/26/21 10:30 113 H 19 144/106 H 96 12/26/21 10:28 108 H 18 148/95 H 96 12/26/21 10:22 133 H 21 123/92 99 12/26/21 10:00 117 H 17 139/98 99 12/26/21 09:30 86 23 161/89 H 96 12/26/21 09:00 86 16 165/97 H 99 12/26/21 08:30 77 15 153/85 H 98 12/26/21 08:00 82 21 160/90 H 99 12/26/21 07:30 84 18 154/85 H 99 Laboratory Results Laboratory Results - last 24 hr 12/26/21 12/26/21 12/26/21 07:30 07:30 07:30 WBC 15.99 H RBC 4.65 Hgb 12.9 POC Hgb Hct 39.5 POC Hct MCV 84.9 MCH 27.7 MCHC 32.7 RDW Std Deviation 41.0 RDW Coeff of [place] 13.3 Plt Count 338 MPV 11.1 H Immature Gran % (Auto) 0.3 Neut % (Auto) 82.7 Lymph % (Auto) 11.8 [place] % (Auto) 4.9 Eos % (Auto) 0.2 Baso % (Auto) 0.1 Neut # (Auto) 13.24 H Lymph # (Auto) 1.88 [place] # (Auto) 0.78 H Eos # (Auto) 0.03 Baso # (Auto) 0.01 Immature Gran # (Auto) 0.05 H PT 10.7 INR 1.0 APTT 24.2 PTT Ratio 0.9 POC Sodium Sodium 137 POC Potassium Potassium 3.4 L POC Chloride Chloride 100 Carbon Dioxide 24 POC Total CO2 Anion Gap 13 H POC Anion Gap POC BUN BUN 38 H Creatinine 1.35 H POC Creatinine Est Cr Clr Drug Dosing 30.6 Est GFR ( Amer) 43.5 Est GFR (Non-Af Amer) 37.5 BUN/Creatinine Ratio 28.1 H Glucose 214 H POC Glucose POC Glucose (other) Calcium 10.2 H POC Ioniz Calcium [place] Magnesium 1.9 Total Bilirubin 0.6 AST 21 ALT 12 Alkaline Phosphatase 68 Troponin I High Sens 144.6 H* Total Protein 8.1 Albumin 4.1 Globulin 4.0 Albumin/Globulin Ratio 1.0 SARS-CoV-2, RNA, NAAT 12/26/21 12/26/21 12/26/21 07:39 09:28 11:52 WBC RBC Hgb POC Hgb 13.9 Hct POC Hct 41 MCV MCH MCHC RDW Std Deviation RDW Coeff of [place] Plt Count MPV Immature Gran % (Auto) Neut % (Auto) Lymph % (Auto) [place] % (Auto) Eos % (Auto) Baso % (Auto) Neut # (Auto) Lymph # (Auto) [place] # (Auto) Eos # (Auto) Baso # (Auto) Immature Gran # (Auto) PT INR APTT PTT Ratio POC Sodium 139 Sodium POC Potassium 3.3 Potassium POC Chloride 100 L Chloride Carbon Dioxide POC Total CO2 25 Anion Gap POC Anion Gap 18.0 POC BUN 37 H BUN Creatinine POC Creatinine 1.4 H Est Cr Clr Drug Dosing Est GFR ( Amer) Est GFR (Non-Af Amer) BUN/Creatinine Ratio Glucose POC Glucose 173 H POC Glucose (other) 226 H Calcium POC Ioniz Calcium [place] 1.23 Magnesium Total Bilirubin AST ALT Alkaline Phosphatase Troponin I High Sens 207.3 H* D Total Protein Albumin Globulin Albumin/Globulin Ratio SARS-CoV-2, RNA, NAAT 12/26/21 12/26/21 18:20 Unknown WBC RBC Hgb POC Hgb Hct POC Hct MCV MCH MCHC RDW Std Deviation RDW Coeff of [place] Plt Count MPV Immature Gran % (Auto) Neut % (Auto) Lymph % (Auto) [place] % (Auto) Eos % (Auto) Baso % (Auto) Neut # (Auto) Lymph # (Auto) [place] # (Auto) Eos # (Auto) Baso # (Auto) Immature Gran # (Auto) PT INR APTT PTT Ratio POC Sodium Sodium POC Potassium Potassium POC Chloride Chloride Carbon Dioxide POC Total CO2 Anion Gap POC Anion Gap POC BUN BUN Creatinine POC Creatinine Est Cr Clr Drug Dosing Est GFR ( Amer) Est GFR (Non-Af Amer) BUN/Creatinine Ratio Glucose POC Glucose 132 H POC Glucose (other) Calcium POC Ioniz Calcium [place] Magnesium Total Bilirubin AST ALT Alkaline Phosphatase Troponin I High Sens Total Protein Albumin Globulin Albumin/Globulin Ratio SARS-CoV-2, RNA, NAAT NEGATIVE Diagnostic Findings Telemetry personally reviewed as noted above in HPI. Atrial fibrillation with RVR. ECGs personally reviewed as noted in HPI. CTA neck/head 12/26/2021: No acute intracranial abnormality. 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 No rupture. Atherosclerotic plaque of the right carotid bulb 50% luminal narrowing of right ICA. Medications Administered Current Inpatient Medications Aspirin (Aspirin 81 Mg Chew) 81 mg PO DAILY GIGI Stop: 01/26/22 08:59 Atorvastatin Calcium (Atorvastatin 40 Mg Tab) 80 mg PO HS GIGI Stop: 01/25/22 20:59 Dextrose (Dextrose 50% 50 Ml Syringe) 25 - 50 ml IV UD PRN; Protocol PRN Reason: Hypoglycemia Protocol Stop: 01/25/22 11:44 Fish Oil (Lake-3 (Purified Fish Oil) 1 Gm Cap) 1 gm PO BID GIGI Stop: 01/25/22 20:59 Glucagon (Glucagon For Inj 1 Mg Vial) 1 mg IM UD PRN; Protocol PRN Reason: Hypoglycemia Protocol Stop: 01/25/22 11:44 Glucose (Glucose 40% Gel 15 Gm Tube) 15 - 30 gm PO UD PRN; Protocol PRN Reason: Hypoglycemia Protocol Stop: 01/25/22 11:44 Glucose (Glucose 10 Tabs/Tube) 4 - 8 tabs PO UD PRN; Protocol PRN Reason: Hypoglycemia Protocol Stop: 01/25/22 11:44 Insulin Aspart (Insulin Aspart Per Unit) 0 units SC Q6 GIGI Stop: 01/25/22 11:59 Last Admin: 12/26/21 18:25 Dose: Not Given Documented by: Metoprolol Tartrate (Metoprolol Tartrate 1 Mg/Ml Vial) 5 mg IV Q6 GIGI; Protocol Stop: 01/25/22 17:59 Last Admin: 12/26/21 18:08 Dose: 5 mg Documented by: Miscellaneous (Carbohydrates For Hypoglycemia ) 15 - 30 gm PO UD PRN PRN Reason: Hypoglycemia Treatment Stop: 01/25/22 11:44 Miscellaneous Information (Pharmacist Discharge Med Rec Consult) 1 ea N/A UD P RN PRN Reason: Consult Stop: 01/25/22 09:58 Miscellaneous Information (Pharmacy Glycemic Mgmt Consult) 1 ea N/A UD PRN PRN Reason: Consult Stop: 01/25/22 10:14 Multivitamins/Minerals (Cerovite Adv Formula Tab) 1 tab PO QAM GIGI Stop: 01/26/22 08:59 PG Care Time/CCT Total # of Minutes Spent Total Time Spent with Patient: Total time spent is greater than 50% in coordination of care (as documented) at patient's floor/unit and/or counseling patient: Coding Level of Care Code 92421 Initial Inpt Care Lvl 3 Diagnoses Atrial fibrillation with rapid ventricular response I48.91 Hypertension I10 Dyslipidemia E78.5 Elevated troponin R77.8 Stroke I63.9
--- NOTE | 2021-12-26 20:22 | XCELERA ---
[id number]
[2021-12-26] MEDS: OMEGA-3 (PURIFIED FISH OIL) 1 GM CAP PO SCH (20:36)
[2021-12-26] MEDS ORDERED: ATORVASTATIN 40 MG TAB PO SCH (21:00)
--- NOTE | 2021-12-26 21:12 | Magnetic Resonance Report ---
MRI OF THE BRAIN WITHOUT IV CONTRAST CLINICAL HISTORY: Strokelike symptoms. COMPARISON STUDY: CT of the brain dated 12/26/2021. TECHNIQUE: MRI of the brain was performed utilizing various T1 and T2-weighted sequences in the axial , sagittal, and coronal planes. IV contrast was not administered for this examination. FINDINGS: Brain parenchyma: There is restricted diffusion throughout the left posterior cerebral artery territo ry consistent with an acute to subacute infarct. A 1.3 cm acute to subacute lacunar infarct is noted in the left thalamus. There is a punctate acute to subacute lacunar infarct in the right. Ventricular white matter seen on axial image #14. There is no hemorrhage or mass effect. There is age-related in volutional change noting mild subcortical and periventricular microangiopathic disease. A chronic lac unar infarct versus perivascular space is noted in the left basal ganglion. No extra-axial fluid louis ection is seen. The cerebellar tonsils are normal in configuration. Ventricles, sulci, and cisterns: Normal in configuration. Pituitary and sella: Unremarkable. Intracranial vasculature: Normal flow voids are maintained at the skull base. Orbits: The bony orbits are grossly intact. Orbital contents are normal in appearance noting bilatera l ocular lens implants. Sinuses and mastoids: Clear. Calvarium: Unremarkable. Cervical cord: Partially visualized cervical spinal cord is normal in morphology and signal intensity . IMPRESSION: 1. There is a large acute to subacute left NATIONAL ACCOUNT MANAGER territory infarct. 2. There are acute to subacute lacunar infarcts in the left thalamus and the right periventricular wh ite matter. The presence of bilateral infarcts suggests an embolic phenomenon. 3. No hemorrhage or mass effect is identified. ACT 112: Negative or not required by law. Electronically signed by: Beau Arteaga M.D. 12/26/2021 9:10 PM
--- NOTE | 2021-12-26 22:33 | Communication Note ---
Date of Service: December 26, 2021 Messaged by nursing at 923PM that brain MRI has been read by radiology. I have spoken to the nurse to get additional history as there was limited documentation available aside from cardiology consult note. I discussed w/ night attending and the concern is cardioembolic source (especially with the bilateral infarcts on MRI) and the risk of embolizing further clots. Because patient had telestroke consultation in the morning, I called [place] telestroke service and spoke to the on-call provider Dr. Singer (different from the neurologist who staffed the consult) I mentioned the MRI and CTA findings and the concern for cardioembolic source. She states that it would be a risk vs benefit scenario. She mentions that her recommendation is limited especially in absence of seeing the actual imaging. Larger infarct=higher risk of hemorrhagic conversion. Consider likelihood of embolic source. Converting back and forth between sinus and afib would increase risk. She recommended discussing w/ family. She recommended permissive hypertension. Anticoagulating w/ heparin drip be easier to stop if there were to be a bleed. She recommends more frequent neur o checks to monitor for mentation changes mentation changes. If changes or repeated afib rhythm, then could lean more towards anticoagulating acutely. She states that PO anticoagulation would typically be started 10-14 days after the stroke event, longer if hemorrhagic. She mentioned that the age indeterminate STAFFING BRANCH MANAGER P1 segment occlusion may be contributory. TTE (limited by poor quality) did not show emboli. Because patient converted to sinus at the time of the call, she stated that holding off on anticoagulation would be reasonable, but that it would be important to assess clinical status closely. ~11:45pm. assessed patient. Symptoms improving. NIH Stroke scale 3 points compared to 6 points at 8pm. Subsequently, patient returned to afibrvr 120s-130s. 1am: converted to sinus after providing 500mL NSS bolus. Repleting K and Mg. exam: dysarthria almost completely resolved. No facial droop or tongue deviation. Slight RUE drift. 4/5 RUE strength. 5/5 elsewhere. Sensation intact. No confusion. Answering questions. Continue q2h neuro checks. Migel Go PGY2 night resident
[2021-12-27] MEDS: INSULIN ASPART PER UNIT SC SCH ×5 (00:16→21:04)
[2021-12-27] MEDS ORDERED: SODIUM CHLORIDE 0.9% 1000ML 500 ML IV ONE (00:31)
[2021-12-27 01:22] LABS: BUN Creatinine Ratio 29.3 (10-20); Est GFR (African American) 63.3 ml/min; Est GFR (Non-African American) 54.6 ml/min; Magnesium 1.8 mg/dl (1.7-2.4); Potassium 3.5 mmol/L (3.5-5.1)
[2021-12-27] MEDS ORDERED: MAGNESIUM SULFATE / D5W 1 GM/100 ML BAG IV ONE (01:31)
[2021-12-27 01:43] LABS: Troponin I High Sensitivity 468.5 pg/ml (0-14)
[2021-12-27] MEDS: POTASSIUM CHLORIDE / WTR 10 MEQ/100 ML PLCT IV SCH ×2 (02:28→03:29)
--- NOTE | 2021-12-27 06:11 | Electrocardiogram Report ---
Test Reason : Blood Pressure : / mmHG Vent. Rate : 081 BPM Atrial Rate : 081 BPM P-R Int : 156 ms QRS Dur : 100 ms QT Int : 422 ms P-R-T Axes : 033 -18 013 degrees QTc Int : 490 ms Poor data quality, interpretation may be adversely affected Normal sinus rhythm Possible Inferior infarct When compared with ECG of 19-FEB-2019 14:23, QRS duration has increased ST no longer depressed in Lateral leads Confirmed by Al Lakhani ([id number]) on 12/27/2021 6:11:22 AM Referred By: REFERRED SELF Confirmed By:Al Lakhani
--- NOTE | 2021-12-27 06:26 | Electrocardiogram Report ---
Test Reason : Blood Pressure : / mmHG Vent. Rate : 115 BPM Atrial Rate : 131 BPM P-R Int : 000 ms QRS Dur : 104 ms QT Int : 362 ms P-R-T Axes : 000 -38 071 degrees QTc Int : 500 ms Atrial fibrillation with rapid ventricular response Left axis deviation Inferior infarct , age undetermined Abnormal ECG When compared with ECG of 26-DEC-2021 07:18, Atrial fibrillation has replaced Sinus rhythm Confirmed by Al Lakhani ([id number]) on 12/27/2021 6:25:52 AM Referred By: REFERRED SELF Confirmed By:Al Lakhani
[2021-12-27 07:12] LABS: Basophils # (auto) 0.01 K/uL (0-0.2); Basophils % (auto) 0.1 %; Eosinophils # (auto) 0.09 K/uL (0-0.5); Eosinophils % (auto) 0.8 %; Hematocrit (blood only) 39.5 % (37-47); Immature Granulocytes # (auto) 0.03 K/uL (0.00-0.02); Immature Granulocytes % (auto) 0.3 %; Lymphocytes # (auto) 3.66 K/uL (1.2-3.4); Lymphocytes % (auto) 30.7 %; Mean Corpuscular Hemoglobin 27.7 pg (25-34); Mean Corpuscular Hgb Conc 32.9 g/dL (32-36); Mean Corpuscular Volume 84.2 fL (80-100); Mean Platelet Volume 11.1 fL (7.4-10.4); Monocytes # (auto) 0.89 K/uL (0.11-0.59); Monocytes % (auto) 7.5 %; Neutrophils # (auto) 7.24 K/uL (1.4-6.5); Neutrophils % (auto) 60.6 %; Platelet Count 371 K/uL (130-400); RDW Coefficient of Variation 13.5 % (11.5-14.5); RDW Standard Deviation 40.9 fL (36.4-46.3); Red Blood Count 4.69 M/uL (4.2-5.4); White Blood Count 11.92 K/uL (4.8-10.8)
[2021-12-27 07:38] LABS: BUN Creatinine Ratio 25.7 (10-20); Calcium 9.6 mg/dl (8.5-10.1); Chol HDL Ratio 2.4 (0-5); Creatinine Clr Calc Pharmacy 39.5 ml/min; Est GFR (African American) 58.9 ml/min; Est GFR (Non-African American) 50.8 ml/min; Potassium 3.7 mmol/L (3.5-5.1)
--- NOTE | 2021-12-27 08:50 | Neurology Consultation ---
Date of Consultation December 27, 2021 Assessment & Plan (1) Acute CVA (cerebrovascular accident): (2) Acute right hemiparesis: (3) Dysarthria: (4) Atrial fibrillation with rapid ventricular response: (5) Hypertension: (6) Diabetes mellitus type 2, insulin dependent: (7) Chronic cerebral ischemia: (8) Cerebral aneurysm without rupture: this patient has multiple acute/ subacute CVAs: A medium to large left posterior parietal /occipital, a small left basal ganglia and a tiny right pe riventricular stroke. Clinically she is stable and has some slightly improving right hemiparesis, arm> leg>face. there is an upgoing toe on the right. She has tcym-we-dwrmdldm dysarthria without aphasia. Despite the occipital area stroke she does not seem to have visual field cuts or homonymous hemianopsia to my exam. The etiology of these strokes is likely embolic from her heart and I note that she has been going in and out of atrial fibrillation. Patient has some mild old small vessel ischemia on MRI of the brain. She has multiple risk factors for small vessel ischemic disease including hypertension, Diabetes, and dyslipidemia. 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 This has a very low risk of rupture and could be followed over time. Recommendations: 1. continue 81 milligram aspirin tablet daily. 2. Control blood pressure as you are doing, aiming for mean arterial pressure of 95-100. 3. Control glucose as you are doing, aiming to lower hemoglobin A1c closer to 6.5 4. continue simvastatin at current dose. Her total cholesterol of 113, plus the size of this new stroke and her age make be hesitant to recommend high dose statin. 5. Physical, occupational, and speech therapy consults. Increase activity as able. 6. initiate anticoagulant as she is going in and out of atrial fibrillation. This could be started tonight or tomorrow morning. I am not certain she needs a heparin drip prior to this, but obviously, this would be reasonable to do. Given her rather large stroke I would avoid a bolus dose and just pick a dose of heparin if this medication is initiated. Overall, I spent a total of 90 minutes with this case including review of records, review of MRI films, direct evaluation the patient at bedside, and di scussion of the case with the patient and RN at bedside, and Dr. Walker, including differential diagnosis and treatment options. History of Present Illness Reason for Consultation: Patient is a 76-year-old, who I was asked to see at the request of Dr. Cook, for neurologic consultation regarding stroke. Requesting Physician: Dr. Cook Attending Physician: Dereck Walker MD History of Present Illness this patient has a history of diabetes ( for at least 5 years) on insulin. In addition, she has a longstanding history of hypertension and some dyslipidemia. She has never been a smoker. She tells me that over the last 2 days she has had some decreased appetite and felt weak all over. She went to bed on the evening of December 25 at around 2000, feeling reasonably well. She woke up at some point in the middle the night ( she tells me around 0200) to go to the bathroom. She got up but collapsed to the floor on her knees because her legs were weak. She did not believe her arms were weak and she did not believe she had any speech problem. Apparently she laid on the ground unable to get up and eventually the ambulance was called and she was taken to the hospital. She arrived to the emergency room at 07:30 on December 26, with a temperature of 36.8, pulse 84 and regular, blood pressure 147/95 with a respiratory rate of 17 and O2 saturation of 99 percent on room air. She apparently had some right-sided weakness and dysarthria. CBC was remarkable for an elevated white count and increased neutrophils. Chem profile showed potassium of 3.4, BUN of 38, creatinine of 1.35, and glucose of 214. Troponins were increased. CT scan of the head was unremarkable. CT angiography of the head revealed an old left GRINDER OUTSIDE DIAMETER, P1 segment occlusion. There was a 3 millimeter aneurysm noted in the [place]. CT angiography of the neck revealed some proximal stenosis in the right internal carotid artery at 50 percent. She was out of the window for tPA and her NIH stroke scale was 3 because of right sided weakness and drift. She was admitted and eventually went in and out of atrial fibrillation. She went in and out of atrial fibrillation yesterday (at least once) and was then in atrial fibrillation until about 2 this morning, and has been in normal sinus rhythm ever since. this morning she feels "okay" and has no pain or headache. Her vision is unchanged. She know she has right arm and leg weakness and some slurred speech. Nursing reports that she is a little better today than she was after admission yesterday. She has a dry mouth but has not been able to drink. CBC is improve some this morning glucose is 151. Blood pressure is 132/88. Triglycerides 162 and total cholesterol 113. MRI of the brain revealed a medium/large left posterior cerebral artery territory stroke of an acute nature. There was a smaller acute or subacute infarct in the left thalamus and a very small subacute stroke in the right periventricular white Matter. There was mild general as atrophy and mild old small vessel ischemic disease diffusely in the white matter. Allergies Allergy/AdvReac Type Severity Reaction Status Date / Time Sulfa (Sulfonamide Allergy Mild Rash Verified 08/17/21 11:27 Antibiotics) Home Medications Medication Instructions Recorded Confirmed Type aspirin 81 mg chewable tablet 81 mg PO DAILY 02/04/19 12/26/21 History (Aspirin Childrens) bjnksmxthamv-rhlryaxp-uffagb 1 tab PO QAM 02/04/19 12/26/21 History tablet (Multivitamin 50 Plus) omega-3 360 cz-mwx-exl-fish oil 1 cap PO BID 02/04/19 12/26/21 History 1,200 mg capsule,delayed release (Fish Oil) glucose 4 gram chewable tablet 4 g PO Q15M PRN #20 tab 11/06/20 12/26/21 Rx (Dex4 Glucose) amlodipine 2.5 mg tablet 2.5 mg PO DAILY #90 tab 03/27/21 12/26/21 Rx hydrochlorothiazide 25 mg tablet 25 mg PO DAILY #90 tab 03/27/21 12/26/21 Rx lancets (Accu-Chek Multiclix #100 ea 03/27/21 08/17/21 Rx Lancet) losartan 100 mg tablet 100 mg PO DAILY #90 tab 03/27/21 12/26/21 Rx pen needle, diabetic 29 gauge x #200 ea 03/27/21 08/17/21 Rx 1/2" (BD Ultra-Fine Original Pen Needle) simvastatin 40 mg tablet 40 mg PO HS #90 tab 03/27/21 12/26/21 Rx metformin 1,000 mg tablet 1,000 mg PO BID 90 Days #180 tab 05/04/21 12/26/21 Rx insulin aspart U-100 100 unit/mL See Rx Instructions SUBCUT BID #60 08/17/21 12/26/21 Rx (3 mL) subcutaneous pen (Novolog ml Flexpen U-100 Insulin aspart) blood sugar diagnostic (OneTouch #200 ea 10/22/21 Rx Ultra Test) metoprolol tartrate 100 mg tablet 100 mg PO BID #180 tab 11/26/21 12/26/21 Rx Patient History Medical History Cystocele Diabetes mellitus, type 2 Dyslipidemia Glaucoma History of breast cancer Hypertension Osteoarthritis Osteopenia Surgical History History of colonoscopy History of left breast biopsy History of lumpectomy of left breast 2006 with lymph nodes removed History of lumpectomy of right breast 2000 with lymph nodes removed History of right breast biopsy History of tooth extraction History of total vaginal hysterectomy (TVH) Status post glaucoma surgery bilt Family History Aunt Family history of pseudocholinesterase deficiency 2 aunts "difficulty coming out of it" Family/Other Breast cancer Pancreatic cancer Father , in his 70s of an MRI Myocardial infarction Mother , age 38 of "goiter" complications Goiter Unknown Colorectal cancer Denies family history of Ovarian cancer Prostate cancer Social History Smoking Status: Never smoker Second Hand Exposure: No; Hx Alcohol Use: No Hx Substance Use: No Preferred Language: Romanian Communication Ability: Effective Hearing Ability: Normal Slat Twister Required: No Beliefs That Will Affect Care: None marital status: Current Living Situation: Spouse current occupational status: retired 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 How many Children do You have: 1 Other Information That Helps Us Care for You: No Feels Safe at Home: Yes Safety Concerns: Feels Safe At This Time Childhood Exposure to Second-Hand Smoke: No Dental Care, Regularly: Yes Physical Activity Frequency: Daily Physical Activity Frequency Comment: bike pedaling Seatbelt Use: always Sunscreen Use: Yes Assistive Devices: None Review of Systems Constitutional: + weakness; no fever and no fatigue Eyes: no diplopia, no eye pain and no worsening vision Ear, Nose, Mouth, Throat: no ear pain, no tinnitus, no hearing loss, no dizziness, no snoring, no hoarseness and no dysphagia Respiratory: no cough and no dyspnea Cardiovascular: no chest pain, no palpitations and no lightheadedness Gastrointestinal: no abdominal pain, no nausea and no vomiting Genitourinary: no dysuria, no urinary frequency and no urinary incontinence Musculoskeletal: no back pain, no neck pain, no radicular pain, no joint pain and no myalgia Integumentary: no rash and no lesions Neurologic: + localized weakness and + abnormal speech; no gait abnormality, no generalized weakness, no tingling, no numbness, no tremor(s), no abnormal movements, no headache(s), no confusion and no memory loss Psychiatric: no depression, no irritability, no anxiety, no difficulty concentrating, no confusion and no hallucinations Endocrine: no fatigue and no flushing Hematologic / Lymphatic: no easy bleeding and no easy bruising Allergy / Immunological: no urticaria and no problem reported Exam (Neuro) Physical Exam: The patient is right-handed. The patient is awake, alert, and attentive. Speech is zzln-so-fvrwumrptl dysarthric, but I can understand her for the most part. she has no expressive or receptive aphasia. The patient can name objects, repeat phrases, and has normal spontaneous speech. Mentation and thought processes are intact, with or ientation to person, place and time, and normal fund of knowledge. Attention and concentration are normal. Mood and affect are normal and appropriate. General appearance and grooming are normal. Short and long-term memory seem intact to conversation Pupils are 3 mm bilaterally and reactive to light. Extraocular eye muscles are intact without nystagmus. Visual acuity and visual sharpe seem normal grossly to confrontation. I do not note a visual field deficit. There are no deficits to sensation in the face in all 3 distributions of the fifth cranial nerve bilaterally. Corneal reflexes are positive bilaterally. There is a mild facial droop at the corner of the mouth on the right but, with voluntary smile, the strength and symmetry were present bilaterally. Hearing seems normal bilaterally. Palate moves well without asymmetry. There is normal sternocleidomastoid and trapezius (shoulder shrug) strength bilaterally. Tongue is midline with good strength bilaterally. Neck has a full range of motion without discomfort. There are no cervical bruits bilaterally. There are no cranial or ocular bruits. Heart is without murmur. There is a regular rhythm and rate. Cervical, thoracic, and lumbar spine are nontender to palpation. gait was not tested but stance sitting up in bed was a mildly off following some to the right. With outstretched arms there is significant weakness and drift on the right. There are no resting, postural, or action tremors. There is no ataxia with finger to nose testing. There is decreased facility in the right hand. No other abnormal involuntary movements are noted. Motor strength is 5/5 diffusely in the left upper extremity including deltoids, biceps, triceps, brachioradialis, wrist flexors and extensors, dispatch officer, and intrinsic hand muscles. Motor strength is 5/5 diffusely in the left lower extremity including hip flexors, quadriceps, hamstrings, gastrocnemius, tibialis anterior, tibialis posterior, and Peroneii muscles. The right upper extremity was 4/5 both proximally and distally diffusely. The right lower extremity was 4+/5 (a little stronger than the right arm but not as good as the left leg). The limbs have good tone without rigidity or spasticity. There is no atrophy noted in the muscles. Muscle bulk is normal, there is no tenderness to palpation, no myotonia to percussion, and no fasciculations seen. Sensory examination is intact to touch and pin throughout all 4 limbs diffusely. Reflexes are 2/4 in the biceps, triceps, brachioradialis, and quadriceps tendons bilaterally. Achilles tendon reflexes were 1/4. There is no clonus bilaterally. Toes are downgoing with plantar stimulation on the left and upgoing on the right. Peripheral pulses are present and of normal quality distally in all 4 limbs. There is no peripheral edema noted in the limbs. Results & Data ([facility]) Vital Signs (Past 12 Hours) Vital Signs Temp Pulse Pulse Resp BP Pulse Ox 12/27/21 07:59 36.8 C 99 H 18 122/76 93 12/27/21 04:53 36.7 C 108 H 18 132/88 92 12/27/21 03:10 88 121/67 12/27/21 01:21 90 125/78 12/27/21 00:31 112 H 112/67 12/26/21 23:56 107 H 149/83 H 12/26/21 23:38 140/75 12/26/21 23:14 36.5 C 96 H 17 124/77 95 12/26/21 22:30 91 H PG Care Time/CCT Total # of Minutes Spent Total Time Spent with Patient: Total time spent is greater than 50% in coordination of care (as documented) at patient's floor/unit and/or counseling patient: Coding Level of Care Code 82627 Initial Inpt Care Lvl 3 Diagnoses Acute CVA (cerebrovascular accident) I63.9 Acute right hemiparesis G81.91 Dysarthria R47.1 Atrial fibrillation with rapid ventricular response I48.91 Hypertension I10 Diabetes mellitus type 2, insulin dependent E11.9; Z79.4 Chronic cerebral ischemia I67.82 Cerebral aneurysm without rupture I67.1
[2021-12-27] MEDS ORDERED: INSULIN GLARGINE SOLOSTAR 100 UNITS/ML 3 ML PEN SC SCH ×2 (09:00→21:00)
[2021-12-27] MEDS: CEROVITE ADV FORMULA TAB PO SCH (09:59)
[2021-12-27] MEDS: ASPIRIN 81 MG CHEW PO SCH (09:59)
[2021-12-27] MEDS: OMEGA-3 (PURIFIED FISH OIL) 1 GM CAP PO SCH ×2 (09:59→21:06)
[2021-12-27] MEDS ORDERED: Nursing to Pharmacy Communication SCH (10:00)
[2021-12-27 10:08] LABS: Estimated Average Glucose 163 mg/dl; Hemoglobin A1C 7.3 % (4.5-5.6)
--- NOTE | 2021-12-27 10:24 | Pharmacy Report ---
Pharmacy Glycemic Short Note 2 - Date of Service December 27, 2021 - Glycemic Short BSG Results (Last 24 hours): 12/26/21 12/26/21 12/27/21 11:52 18:20 00:00 Glucose POC Glucose 173 H 132 H 164 H 12/27/21 12/27/21 12/27/21 00:35 06:10 06:33 Glucose 149 H 151 H POC Glucose 165 H 12/27/21 09:16 Glucose POC Glucose 164 H OUTPATIENT ANTIDIABETIC REGIMEN: * Novolog 46 units SC qAM, 14 units SC qPM * Metformin 1 g PO BIDM * HbA1c: 6.8% (08/17/21) ASSESSMENT: 12/27 * Patient received total of 18 units of insulin yesterday, of which 15 units were basal * Fasting BSG 165 mg/dL - continue with Lantus 15 units daily, continues NPO status this AM * May add small Lantus scale for HS if diet changed and if BSGs trending upward * Patient on all novolog insulin at home, very large dose in the morning. Would ensure patient not having any hypoglycemia outpatient with current insulin regimen before discharging on home regimen 12/26 * CS is a 76 year old female presented to ED with right facial droop, slurred speech, and ataxia * Currently NPO as a precaution in light of facial droop * BSGs of 226 on admission, 173 mg/dL at lunchtime * HbA1c suggests good outpatient glycemic control with ~60 units of insulin/day + metformin as an outpatient PLAN FOR INPATIENT GLYCEMIC CONTROL: * Hold outpatient oral diabetes medications * Basal insulin * Lantus 15 units SC daily * Bolus insulin * NovoLog per scale ACHS or Q6hrs while NPO * Goal Range: Low 110 mg/dL - High 140 mg/dL * Correction Factor: 25 mg/dL/unit * Nutritional / Prandial insulin per carb ratio of 1 unit per 9 grams CHO consumed
--- NOTE | 2021-12-27 13:43 | Hospitalist Progress Note ---
Date of Service December 27, 2021 Assessment & Plan (1) Stroke: Plan: -Aphasia, right sided weakness in a 76 yo female who developed A. fib while in the room. -Patient has no symptoms of her A. fib (aside from her stroke). -Likely patient has been going in an out of a fib prior to this episode. -Tele stroke consulted on admission no indication for transfer as likely posterior circulation and difficult to retrieve thrombus and no indication for tpa as out of window. MRI:There is a large acute to subacute left ALUMNI RELATIONS COORDINATOR territory infarct. There are acute to subacute lacunar infarcts in the left thalamus and the right periventricular white matter. The presence of bilateral infarcts suggests an embolic phenomenon. No hemorrhage or mass effect is identified. Discussed with neurology. Given embolic origin and continued paroxysmal A. fib would start on anticoagulation tonight or tomorrow morning. Reviewed telestroke recommendations which initially recommended holding off on anticoagulation for 10 to 14 days, given likely embolic findings on MRI with paroxysmal A. fib acute anticoagulation is reasonable. Given concern for bleeding risk will start with low-dose no bolus heparin tonight and follow closely. If worsening mental status hold heparin and obtain repeat CT head. Benefits of anticoagulation including preventing further embolic stroke discussed with patient, risks of anticoagulation including hemorrhagic conversion of her existing stroke which could worsen her deficits or be life-threatening/fatal also discussed. Continue simvastatin. Continue aspirin. Continue therapy. Patient with right arm weakness, but is able to hold for can eat today with a "sluggish feeling "which is improved from prior (2) Atrial fibrillation with rapid ventricular response: Plan: Newly diagnosed. Patient with paroxysmal A. fib high risk for embolic stroke, with acute embolic stroke as above Continue metoprolol 5 mg IV every 6 as needed as needed, currently held for hypotension with adequate rate control. Cleared by speech No clinical signs of ACS. Elevated troponin likely demand ischemia. High- sensitivity troponin now downtrending. Anticoagulation as above, patient is a DOAC candidate if tolerating anticoagulation well Optimize mag 2.0, potassium 4.0 (3) Hypertension: Plan: holding BP meds due to permissive hypertension. (4) Dyslipidemia: Plan: Was switched to atorvastatin initially, given total cholesterol 113, embolic origin, and age switched back to simvastatin 40 mg (5) Diabetes mellitus type 2, insulin dependent: Plan: Glucose checks AC/at bedtime SSI [id number], CF 25, ratio 9 Pharmacy tilted for glycemic stroke management admission A1c 7.3 Admission and Anticipated Discharge Date Admission Date: December 26, 2021 Subjective Patient seen at the bedside. Reports that she is still having some trouble eating with her right hand, but this seems improved from yesterday. Some dysarthria is present, but again she feels this is slightly improved. Reports she feels globally weak in the last couple of days. Denies headache, nausea, vomiting, diarrhea, chest pain, chest pressure, shortness of breath, difficulty breathing today. Discussed risk/benefits of acute anticoagulation given her paroxysmal A. fib. REviewed with telemetry was again in and out of afib prior to midnight then sinus after midnight. Given continued paroxysmal A. fib has increased stroke risk which is reduced by anticoagulation, however this does increase her risk of hemorrhagic conversion of her existing stroke. Patient expresses understanding of this, and is okay with anticoagulation for her A. fib acutely Review of Systems Review of Systems: All systems reviewed & are unremarkable except as noted in Subjective Physical Exam Physical Exam: General: Oriented to name, month, and place. Some dysarthria is present. HEENT: Atraumatic, normocephalic. Vision/hearing grossly intact, somewhat hard of hearing. Pulm: CTAB A&P. -wheezes, -rales, -rhonchi. Symmetrical chest rise. No increase in work of breathing. No respiratory distress. Cardiac: RRR, -mrg. Radial pulses intact and symmetrical. Abdominal: Nontender, nondistended, soft. BS present. Extremities: 4/5 strength to right shoulder flexion, elbow flexion/extension, wrist flexion/extension, and tetryl blender operator strength compared to 5/5 on the left. Right lower extremity with intact ankle dorsiflexion/plantarflexion slightly qualitatively weaker than left but nearly symmetrical. No clonus. Sensation to soft touch intact in fingers and ankles. No edema. Results & Data Results & Data ([facility]) Vital Signs (Past 12 Hours) Vital Signs Temp Pulse Resp BP Pulse Ox 12/27/21 11:57 36.6 C 108 H 18 98/64 L 95 12/27/21 07:59 36.8 C 99 H 18 122/76 93 12/27/21 04:53 36.7 C 108 H 18 132/88 92 12/27/21 03:10 88 121/67 PG Care Time/CCT Total # of Minutes Spent Total Time Spent with Patient: Total time spent is greater than 50% in coordination of care (as documented) at patient's floor/unit and/or counseling patient: Coding Level of Care Code 17658 Subseq Hosp Care Lvl 3 Diagnoses Stroke I63.9 Atrial fibrillation with rapid ventricular response I48.91 Hypertension I10 Dyslipidemia E78.5 Diabetes mellitus type 2, insulin dependent E11.9; Z79.4
--- NOTE | 2021-12-27 16:18 | Cardiology Progress Note ---
Date of Service December 27, 2021 Assessment & Plan (1) Atrial fibrillation with rapid ventricular response: (2) Hypertension: (3) Dyslipidemia: (4) Elevated troponin: (5) Stroke: (6) Paroxysmal atrial fibrillation: Plan: ASSESSMENT/PLAN: 1. Paroxysmal AFib: Currently in sinus rhythm. Has maintained sinus rhythm for most of this day since converting at just before 1:00 a.m.. Will resume metoprolol tartrate 100 mg twice daily now that she is cleared to take pills from speech. Anticoagulation for stroke risk reduction when safe from a neurologic standpoint. She has been placed on heparin drip as per primary service. Can convert to oral anticoagulation therapy such as Eliquis before or at time of discharge. 2. Hypertension: Blood pressure mildly elevated. Will defer to primary hospitalist service given acute stroke. 3. Dyslipidemia: Continue high-intensity statin therapy given stroke. 4. Elevated troponin: She did not present with acute coronary syndrome. Elevated troponin likely due to stroke or demand ischemia in the setting of AFib with RVR. No ischemic evaluation necessary at this time. 5. Stroke: As per Neurology and primary hospitalist service. 6. Disposition: Cardiology will sign off at this time. Please call with any o ther questions or concerns. Plan of care communicated with Dr. Walker of the primary hospitalist service. Will arrange for cardiology follow-up in the outpatient setting. Admission and Anticipated Discharge Date Admission Date: December 26, 2021 Subjective Patient seen this afternoon. Apparently she fell out of bed earlier but denies striking her head. She believes that her right-sided weakness has improved. Her speech has improved and she is now cleared to swallow. She denies chest pain, palpitations, shortness of breath, syncope. She has been seen by Neurology. She has been started on heparin drip. She was alone in her hospital room. Review of systems: As above. Physical Exam Physical Exam: Gen.: No acute distress. Alert. HEENT: Anicteric sclera. Neck: No JVD. Cardiac: Regular. Normal S1-S2. No murmurs, rubs, or gallops. Pulmonary: Clear to auscultation bilaterally without wheezes, rales, or rhonchi. Abdomen: Soft, nontender, nondistended, with normoactive bowel sounds. No bruits noted. Extremities: 2+ radial pulses bilaterally. 2+ posterior tibialis pulses bilaterally. No edema or cyanosis. Psychiatric: Affect appears appropriate. Results & Data ([facility]) Vital Signs (Past 12 Hours) Vital Signs Temp Pulse Resp BP Pulse Ox 12/27/21 15:42 36.8 C 101 H 18 145/84 H 95 12/27/21 14:35 36.9 C 114 H 20 170/89 H 95 12/27/21 11:57 36.6 C 108 H 18 98/64 L 95 12/27/21 07:59 36.8 C 99 H 18 122/76 93 12/27/21 04:53 36.7 C 108 H 18 132/88 92 Laboratory Results Laboratory Results - last 24 hr 12/26/21 12/27/21 12/27/21 18:20 00:00 00:35 WBC RBC Hgb Hct MCV MCH MCHC RDW Std Deviation RDW Coeff of Esperanza Plt Count MPV Immature Gran % (Auto) Neut % (Auto) Lymph % (Auto) Dukes % (Auto) Eos % (Auto) Baso % (Auto) Neut # (Auto) Lymph # (Auto) Dukes # (Auto) Eos # (Auto) Baso # (Auto) Immature Gran # (Auto) Sodium 138 Potassium 3.5 Chloride 101 Carbon Dioxide 25 Anion Gap 12 H BUN 29 H Creatinine 0.99 D Est Cr Clr Drug Dosing 42.0 Est GFR ( Amer) 63.3 Est GFR (Non-Af Amer) 54.6 BUN/Creatinine Ratio 29.3 H Glucose 149 H POC Glucose 132 H 164 H Estimat Average Glucose Hemoglobin A1c Calcium 10.0 Magnesium 1.8 Troponin I High Sens 468.5 H* D Triglycerides Cholesterol LDL Cholesterol, Calc VLDL Cholesterol, Calc HDL Cholesterol Cholesterol/HDL Ratio 12/27/21 12/27/21 12/27/21 06:10 06:33 06:33 WBC 11.92 H RBC 4.69 Hgb 13.0 Hct 39.5 MCV 84.2 MCH 27.7 MCHC 32.9 RDW Std Deviation 40.9 RDW Coeff of Esperanza 13.5 Plt Count 371 MPV 11.1 H Immature Gran % (Auto) 0.3 Neut % (Auto) 60.6 Lymph % (Auto) 30.7 Dukes % (Auto) 7.5 Eos % (Auto) 0.8 Baso % (Auto) 0.1 Neut # (Auto) 7.24 H Lymph # (Auto) 3.66 H Dukes # (Auto) 0.89 H Eos # (Auto) 0.09 Baso # (Auto) 0.01 Immature Gran # (Auto) 0.03 H Sodium 138 Potassium 3.7 Chloride 102 Carbon Dioxide 24 Anion Gap 12 H BUN 27 H Creatinine 1.05 Est Cr Clr Drug Dosing 39.5 Est GFR ( Amer) 58.9 Est GFR (Non-Af Amer) 50.8 BUN/Creatinine Ratio 25.7 H Glucose 151 H POC Glucose 165 H Estimat Average Glucose Hemoglobin A1c Calcium 9.6 Magnesium Troponin I High Sens Triglycerides 152 H Cholesterol 113 LDL Cholesterol, Calc 36 VLDL Cholesterol, Calc 30 HDL Cholesterol 47 Cholesterol/HDL Ratio 2.4 12/27/21 12/27/21 12/27/21 06:33 08:53 09:16 WBC RBC Hgb Hct MCV MCH MCHC RDW Std Deviation RDW Coeff of [place]anza Plt Count MPV Immature Gran % (Auto) Neut % (Auto) Lymph % (Auto) Dukes % (Auto) Eos % (Auto) Baso % (Auto) Neut # (Auto) Lymph # (Auto) Dukes # (Auto) Eos # (Auto) Baso # (Auto) Immature Gran # (Auto) Sodium Potassium Chloride Carbon Dioxide Anion Gap BUN Creatinine Est Cr Clr Drug Dosing Est GFR ( Amer) Est GFR (Non-Af Amer) BUN/Creatinine Ratio Glucose POC Glucose 164 H Estimat Average Glucose 163 Hemoglobin A1c 7.3 H Calcium Magnesium Troponin I High Sens 286.9 H* D Triglycerides Cholesterol LDL Cholesterol, Calc VLDL Cholesterol, Calc HDL Cholesterol Cholesterol/HDL Ratio 12/27/21 12/27/21 12/27/21 11:20 11:22 16:13 WBC RBC Hgb Hct MCV MCH MCHC RDW Std Deviation RDW Coeff of [place]peranza Plt Count MPV Immature Gran % (Auto) Neut % (Auto) Lymph % (Auto) Dukes % (Auto) Eos % (Auto) Baso % (Auto) Neut # (Auto) Lymph # (Auto) Dukes # (Auto) Eos # (Auto) Baso # (Auto) Immature Gran # (Auto) Sodium Potassium Chloride Carbon Dioxide Anion Gap BUN Creatinine Est Cr Clr Drug Dosing Est GFR ( Amer) Est GFR (Non-Af Amer) BUN/Creatinine Ratio Glucose POC Glucose 303 H* 308 H* 165 H Estimat Average Glucose Hemoglobin A1c Calcium Magnesium Troponin I High Sens Triglycerides Cholesterol LDL Cholesterol, Calc VLDL Cholesterol, Calc HDL Cholesterol Cholesterol/HDL Ratio Diagnostic Findings Telemetry personally reviewed: AFib converted to sinus rhythm on 12/26/2021 at 7:07 p.m. and then once again AFib began at 11:22 p.m.. AFib converted to sinus rhythm spontaneously at 12:52 a.m. this morning. No further sustained AFib since then. Currently in sinus rhythm. Echo 12/26/2021: Normal LV size. Estimated EF 50-55%. Mild left atrial dilation. Sclerotic aortic valve. Mild MR. Brain MRI 12/26/2021: Large acute to subacute left [employer] territory infarct. Acute to subacute lacunar infarcts in the left thalamus and right periventricular white matter. No hemorrhage or mass effect identified by Radiology. Medications Administered Current Inpatient Medications Aspirin (Aspirin 81 Mg Chew) 81 mg PO DAILY GIGI Stop: 01/26/22 08:59 Last Admin: 12/27/21 09:59 Dose: 81 mg Documented by: Dextrose (Dextrose 50% 50 Ml Syringe) 25 - 50 ml IV UD PRN; Protocol PRN Reason: Hypoglycemia Protocol Stop: 01/25/22 11:44 Fish Oil ([place]-3 (Purified Fish Oil) 1 Gm Cap) 1 gm PO BID GIGI Stop: 01/25/22 20:59 Last Admin: 12/27/21 09:59 Dose: 1 gm Documented by: Glucagon (Glucagon For Inj 1 Mg Vial) 1 mg IM UD PRN; Protocol PRN Reason: Hypoglycemia Protocol Stop: 01/25/22 11:44 Glucose (Glucose 40% Gel 15 Gm Tube) 15 - 30 gm PO UD PRN; Protocol PRN Reason: Hypoglycemia Protocol Stop: 01/25/22 11:44 Glucose (Glucose 10 Tabs/Tube) 4 - 8 tabs PO UD PRN; Protocol PRN Reason: Hypoglycemia Protocol Stop: 01/25/22 11:44 Heparin Sodium/Dextrose (Heparin Sodium/Dextrose) 25,000 units in 500 mls @ 14 mls/hr IV .Q24H GIGI; Protocol Stop: 01/26/22 20:59 Insulin Aspart (Insulin Aspart Per Unit) 0 units SC ACHS GIGI Stop: 01/26/22 11:29 Last Admin: 12/27/21 12:20 Dose: 5 units Documented by: Insulin Glargine (Insulin Glargine Solostar 100 Units/Ml 3 Ml Pen) 0 units SC HS [facility]; Protocol Stop: 01/26/22 20:59 Metoprolol Tartrate (Metoprolol Tartrate 1 Mg/Ml Vial) 5 mg IV Q6 [facility]; Protocol Stop: 01/25/22 17:59 Last Admin: 12/26/21 18:08 Dose: 5 mg Documented by: Metoprolol Tartrate (Metoprolol Tartrate 100 Mg Tab) 100 mg PO BID [facility] Stop: 01/26/22 20:59 Miscellaneous (Carbohydrates For Hypoglycemia ) 15 - 30 gm PO UD PRN PRN Reason: Hypoglycemia Treatment Stop: 01/25/22 11:44 Miscellaneous Information (Pharmacist Discharge Med Rec Consult) 1 ea N/A UD PRN PRN Reason: Consult Stop: 01/25/22 09:58 Miscellaneous Information (Pharmacy Glycemic Mgmt Consult) 1 ea N/A UD PRN PRN Reason: Consult Stop: 01/25/22 10:14 Multivitamins/Minerals (Cerovite Adv Formula Tab) 1 tab PO QAM [facility] Stop: 01/26/22 08:59 Last Admin: 12/27/21 09:59 Dose: 1 tab Documented by: Simvastatin (Simvastatin 40 Mg Tab) 40 mg PO PM [facility] Stop: 01/26/22 20:59 PG Care Time/CCT Total # of Minutes Spent Total Time Spent with Patient: Total time spent is greater than 50% in coordination of care (as documented) at patient's floor/unit and/or counseling patient: Coding Level of Care Code 76784 Subseq Hosp Care Lvl 3 Diagnoses Atrial fibrillation with rapid ventricular response I48.91 Hypertension I10 Dyslipidemia E78.5 Elevated troponin R77.8 Stroke I63.9 Paroxysmal atrial fibrillation I48.0
[2021-12-27] MEDS ORDERED: Heparin IV Adult Wt-Based Low-Dose *NO* Bolus Protocol IV SCH (21:00)
[2021-12-27 21:08] LABS: Partial Thromboplastin Ratio 0.9; Partial Thromboplastin Time 24.9 Seconds (21.0-31.0)
[2021-12-27] MEDS: HEPARIN SODIUM/DEXTROSE 25,000 UNITS/500 ML BAG IV SCH (22:06)
[2021-12-27] MEDS: SIMVASTATIN 40 MG TAB PO SCH (22:06)
[2021-12-27] MEDS: METOPROLOL TARTRATE 100 MG TAB PO SCH (22:06)
[2021-12-28 04:23] LABS: Basophils # (auto) 0.03 K/uL (0-0.2); Basophils % (auto) 0.3 %; Eosinophils # (auto) 0.26 K/uL (0-0.5); Eosinophils % (auto) 2.2 %; Hematocrit (blood only) 36.8 % (37-47); Hemoglobin 11.9 g/dL (12.0-16.0); Immature Granulocytes # (auto) 0.03 K/uL (0.00-0.02); Immature Granulocytes % (auto) 0.3 %; Lymphocytes # (auto) 3.69 K/uL (1.2-3.4); Mean Corpuscular Hemoglobin 28.1 pg (25-34); Mean Corpuscular Hgb Conc 32.3 g/dL (32-36); Mean Corpuscular Volume 86.8 fL (80-100); Monocytes # (auto) 0.88 K/uL (0.11-0.59); Monocytes % (auto) 7.4 %; Neutrophils # (auto) 7.02 K/uL (1.4-6.5); Neutrophils % (auto) 58.8 %; Platelet Count 355 K/uL (130-400); RDW Coefficient of Variation 13.5 % (11.5-14.5); RDW Standard Deviation 43.2 fL (36.4-46.3); Red Blood Count 4.24 M/uL (4.2-5.4); White Blood Count 11.91 K/uL (4.8-10.8)
[2021-12-28 04:34] LABS: Partial Thromboplastin Time 28.4 Seconds (21.0-31.0)
[2021-12-28 04:37] LABS: BUN Creatinine Ratio 26.7 (10-20); Calcium 9.2 mg/dl (8.5-10.1); Creatinine Clr Calc Pharmacy 41.1 ml/min; Est GFR (African American) 61.7 ml/min; Est GFR (Non-African American) 53.3 ml/min; Potassium 3.5 mmol/L (3.5-5.1)
[2021-12-28] MEDS: HEPARIN SODIUM/DEXTROSE 25,000 UNITS/500 ML BAG IV SCH (04:50)
[2021-12-28] MEDS ORDERED: HEPARIN SOD (PORCINE) 1000 UNIT/ML IV ONE (05:45)
--- NOTE | 2021-12-28 07:46 | Neurology Progress Note ---
Date of Service December 28, 2021 Assessment & Plan (1) Acute CVA (cerebrovascular accident): (2) Acute right hemiparesis: (3) Dysarthria: (4) Atrial fibrillation with rapid ventricular response: (5) Hypertension: (6) Diabetes mellitus type 2, insulin dependent: (7) Chronic cerebral ischemia: (8) Cerebral aneurysm without rupture: Plan: This patient had three acute/ subacute CVAs (with the most recent /largest December 26): A medium to large left posterior parietal /occipital, a small left basal ganglia, and a tiny right periventricular stroke. Clinically she is stable and has made improvements in her right hemiparesis, arm> leg>face. there is an upgoing toe on the right. She has mild dysarthria without aphasia, and this is improving since yesterday as. Despite the occipital area stroke she does not seem to have visual field cuts or homonymous hemianopsia to my exam. The etiology of these strokes is likely embolic from her heart and she has been going in and out of atrial fibrillation and a flutter. Patient has some mild old small vessel ischemia on MRI of the brain. She has multiple risk factors for small vessel ischemic disease including hypertension, Diabetes, and dyslipidemia. 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 This has a very low risk of rupture and could be followed over time. Recommendations: 1. continue 81 milligram aspirin tablet daily. 2. Control blood pressure as you are doing, aiming for mean arterial pressure of 95-100. 3. Control glucose as you are doing, aiming to lower hemoglobin A1c closer to 6.5 4. continue simvastatin at current dose. Her total cholesterol of 113, plus the size of this new stroke and her age make be hesitant to recommend high dose statin. 5. Physical, occupational, and speech therapy consults. Increase activity as able. She is a good rehabilitation hospital candidate and prefers [facility] [place] 6. initiate anticoagulant as she is going in and out of atrial fibrillation/flutter. She can be converted to an oral anticoagulant, from neurologic standpoint Overall, I spent a total of 35 minutes with this case including review of records, review of MRI films, direct evaluation the patient at bedside, and discussion of the case with the patient and RN at bedside, and Dr. Walker, including differential diagnosis and treatment options. Admission and Anticipated Discharge Date Admission Date: December 26, 2021 Subjective Patient feels "well". She has no pain or headache. She is not dizzy. Yesterday the patient tried to ambulate from chair to bed but did not do well with the assistance of 1 and had a controlled fall into the bed. At 0052 she went into atrial flutter and this lasted until 0229 this morning. She is back in normal sinus rhythm since. She has been on heparin. Blood pressure is 127/64 and she is afebrile. White count is still elevated at 11 and a. she has an elevated troponin Cardiology feels that this is secondary to relative ischemia from her stroke and atrial fibrillation. Results & Data ([facility]) Vital Signs (Past 12 Hours) Vital Signs Temp Pulse Pulse Resp BP Pulse Ox 12/28/21 07:25 90 12/28/21 06:34 36.3 C L 83 16 127/64 93 12/28/21 03:47 36.4 C L 70 16 100/60 94 12/27/21 23:51 37 C 60 20 111/70 95 12/27/21 23:24 67 Exam (Neuro) Physical Exam: She is awake and alert. Speech is mildly dysarthric but improved compared to yesterday. She can repeat test phrases fairly well. Extraocular eye muscles are intact without nystagmus. There is no obvious facial droop on the right today and she moves both sides well with good strength. Mood is good and cognition/memory are normal to conversation. There is weakness and drift in the right upper extremity and right lower extremity. Strength is 4/5 in both the right arm and leg compared to the left which is 5/5. Toes are upgoing on plantar stimulation on the right. There are no abnormal involuntary. PG Care Time/CCT Total # of Minutes Spent Total Time Spent with Patient: Total time spent is greater than 50% in coordination of care (as documented) at patient's floor/unit and/or counseling patient: Coding Level of Care Code 20245 Subseq Hosp Care Lvl 3 Diagnoses Acute CVA (cerebrovascular accident) I63.9 Acute right hemiparesis G81.91 Dysarthria R47.1 Atrial fibrillation with rapid ventricular response I48.91 Hypertension I10 Diabetes mellitus type 2, insulin dependent E11.9; Z79.4 Chronic cerebral ischemia I67.82 Cerebral aneurysm without rupture I67.1 Time Spent (min) 35
[2021-12-28] MEDS: INSULIN ASPART PER UNIT SC SCH ×4 (08:42→22:34)
[2021-12-28] MEDS: METOPROLOL TARTRATE 100 MG TAB PO SCH ×2 (08:43→21:26)
[2021-12-28] MEDS: CEROVITE ADV FORMULA TAB PO SCH (08:43)
[2021-12-28] MEDS: OMEGA-3 (PURIFIED FISH OIL) 1 GM CAP PO SCH ×2 (08:43→21:26)
[2021-12-28] MEDS: INSULIN GLARGINE SOLOSTAR 100 UNITS/ML 3 ML PEN SC SCH (08:44)
[2021-12-28] MEDS: ASPIRIN 81 MG CHEW PO SCH (08:47)
[2021-12-28] MEDS: APIXABAN 5 MG TABLET PO SCH ×2 (10:00→21:26)
[2021-12-28 11:24] LABS: Partial Thromboplastin Time 28.1 Seconds (21.0-31.0)
--- NOTE | 2021-12-28 16:34 | Hospitalist Progress Note ---
Date of Service December 28, 2021 Assessment & Plan (1) Stroke: Plan: -Aphasia, right sided weakness in a 76 yo female who developed A. fib while in the room. -Most likely suffered A medium to large left posterior parietal /occipital, a small left basal ganglia, and a tiny right periventricular stroke -Patient has no symptoms of her A. fib (aside from her stroke). -Likely patient has been going in an out of a fib prior to this episode. -Tele stroke consulted on admission no indication for transfer as likely posterior circulation and difficult to retrieve thrombus and no indication for tpa as out of window. MRI:There is a large acute to subacute left [employer] territory infarct. There are acute to subacute lacunar infarcts in the left thalamus and the right periventricular white matter. The presence of bilateral infarcts suggests an embolic phenomenon. No hemorrhage or mass effect is identified. Discussed with neurology. Given embolic origin and continued paroxysmal A. fib, has been started on anticoagulation, Eliquis 5mg BID. Reviewed telestroke recommendations which initially recommended holding off on anticoagulation for 10 to 14 days, given likely embolic findings on MRI with paroxysmal A. fib acute anticoagulation is reasonable. Benefits of anticoagulation including preventing further embolic stroke discussed with patient, risks of anticoagulation including hemorrhagic conversion of her existing stroke which could worsen her deficits or be life-threatening/fatal also discussed. Continue simvastatin. Continue aspirin. Continue therapy. Patient with right sided weakness, but is improving (2) Atrial fibrillation with rapid ventricular response: Plan: Newly diagnosed. Patient with paroxysmal A. fib high risk for embolic stroke, with acute embolic stroke as above Continue metoprolol 5 mg IV every 6 as needed as needed, currently held for hypotension with adequate rate control. Cleared by speech No clinical signs of ACS. Elevated troponin likely demand ischemia. High- sensitivity troponin now downtrending. Anticoagulation Eliquis 5mg BID. patient is a DOAC candidate if tolerating anticoagulation well (3) Hypertension: Plan: holding BP meds due to permissive hypertension. (4) Dyslipidemia: Plan: Was switched to atorvastatin initially, given total cholesterol 113, embolic origin, and age switched back to simvastatin 40 mg (5) Diabetes mellitus type 2, insulin dependent: Plan: Glucose checks AC/at bedtime SSI [id number], CF 25, ratio 9 Pharmacy tilted for glycemic stroke management admission A1c 7.3 Plan: discharge to rehab when accepted Admission and Anticipated Discharge Date Admission Date: December 26, 2021 Subjective patient seen and examined, sitting up in the chair Review of Systems Review of Systems: All systems reviewed are negative, apart from the ones contained in the history. Physical Exam Physical Exam: The patient is awake, alert and oriented 3, well developed and well nourished, normocephalic and atraumatic, lying in bed and in no acute distress. HEENT--PERRL, EOMI, mucous membranes and oropharynx mildly dry Neck--supple. No JVD. No bruits. Thyroid normal, trachea midline, no adenopathy. Heart--normal S1 and S2. No murmurs, rubs or gallops. Lungs--clear bilaterally, no respiratory distress, no accessory muscle use. Abdomen--normal bowel sounds and soft. Mild epigastric and left sided abdominal pain Extremities--no cyanosis or clubbing. No edema. Dermatologic--normal skin turgor, normal color, no abnormal lymph nodes, no rash. Neurologic--right [place] paresis Rheumatologic--normal range of motion. Psychiatric--normal affect. Results & Data Results & Data ([facility]) Vital Signs (Past 12 Hours) Vital Signs Temp Pulse Pulse Resp BP Pulse Ox 12/28/21 14:45 98.1 F 71 18 108/61 93 12/28/21 14:18 61 12/28/21 11:00 98.1 F 88 18 97/60 L 93 12/28/21 07:25 90 12/28/21 06:34 97.3 F L 83 16 127/64 93 PG Care Time/CCT Total # of Minutes Spent Total Time Spent with Patient: Total time spent is greater than 50% in coordination of care (as documented) at patient's floor/unit and/or counseling patient: Coding Level of Care Code 87802 Subseq Hosp Care Lvl 2 Diagnoses Stroke I63.9 Atrial fibrillation with rapid ventricular response I48.91 Hypertension I10 Dyslipidemia E78.5 Diabetes mellitus type 2, insulin dependent E11.9; Z79.4 Time Spent (min) 35
[2021-12-28] MEDS: SIMVASTATIN 40 MG TAB PO SCH (21:26)
[2021-12-29 07:50] LABS: Basophils # (auto) 0.02 K/uL (0-0.2); Basophils % (auto) 0.2 %; Eosinophils # (auto) 0.26 K/uL (0-0.5); Eosinophils % (auto) 2.4 %; Hemoglobin 11.9 g/dL (12.0-16.0); Immature Granulocytes # (auto) 0.04 K/uL (0.00-0.02); Immature Granulocytes % (auto) 0.4 %; Lymphocytes # (auto) 3.74 K/uL (1.2-3.4); Lymphocytes % (auto) 34.2 %; Mean Corpuscular Hemoglobin 27.7 pg (25-34); Mean Corpuscular Hgb Conc 32.2 g/dL (32-36); Mean Corpuscular Volume 86.2 fL (80-100); Mean Platelet Volume 10.6 fL (7.4-10.4); Monocytes # (auto) 0.81 K/uL (0.11-0.59); Monocytes % (auto) 7.4 %; Neutrophils # (auto) 6.06 K/uL (1.4-6.5); Neutrophils % (auto) 55.4 %; Platelet Count 312 K/uL (130-400); RDW Coefficient of Variation 13.5 % (11.5-14.5); RDW Standard Deviation 42.6 fL (36.4-46.3); Red Blood Count 4.29 M/uL (4.2-5.4); White Blood Count 10.93 K/uL (4.8-10.8)
[2021-12-29 08:07] LABS: BUN Creatinine Ratio 25.3 (10-20); Calcium 8.9 mg/dl (8.5-10.1); Creatinine Clr Calc Pharmacy 46.1 ml/min; Est GFR (Non-African American) 60.4 ml/min; Potassium 3.8 mmol/L (3.5-5.1)
[2021-12-29] MEDS: INSULIN GLARGINE SOLOSTAR 100 UNITS/ML 3 ML PEN SC SCH ×3 (08:30)
[2021-12-29] MEDS: CEROVITE ADV FORMULA TAB PO SCH (08:30)
[2021-12-29] MEDS: APIXABAN 5 MG TABLET PO SCH ×2 (08:30→20:17)
[2021-12-29] MEDS: METOPROLOL TARTRATE 100 MG TAB PO SCH ×2 (08:30→20:16)
[2021-12-29] MEDS: OMEGA-3 (PURIFIED FISH OIL) 1 GM CAP PO SCH ×2 (08:30→20:17)
[2021-12-29] MEDS: INSULIN ASPART PER UNIT SC SCH ×4 (08:30→20:17)
[2021-12-29] MEDS: ASPIRIN 81 MG CHEW PO SCH (08:40)
--- NOTE | 2021-12-29 13:45 | Pharmacy Report ---
Pharmacy Glycemic Short Note 2 - Date of Service December 29, 2021 - Glycemic Short BSG Results (Last 24 hours): 12/28/21 12/28/21 12/29/21 16:07 21:44 07:36 Glucose POC Glucose 139 H 105 H 134 H 12/29/21 12/29/21 07:39 11:25 Glucose 149 H POC Glucose 250 H OUTPATIENT ANTIDIABETIC REGIMEN: * Novolog 46 units SC qAM, 14 units SC qPM * Metformin 1 g PO BIDM * HbA1c: 6.8% (08/17/21) ASSESSMENT: 12/29 * BSGs reasonably well-controlled, highest BSG of day seems to be lunchtime (185 mg/dL yesterday) * Fasting BSG of 134 mg/dL this morning - significant reduction from yesterday * Will give scaled Lantus dose today to provide 75-100% of yesterday's dose based on BSG * Given elevated lunchtime BSGs, will tighten Novolog parameters with AM dose starting tomorrow morning * Heparin gtt (mixed in dextrose) discontinued yesterday 12/27 * Patient received total of 18 units of insulin yesterday, of which 15 units were basal * Fasting BSG 165 mg/dL - continue with Lantus 15 units daily, continues NPO status this AM * May add small Lantus scale for HS if diet changed and if BSGs trending upward * Patient on all novolog insulin at home, very large dose in the morning. Would ensure patient not having any hypoglycemia outpatient with current insulin regimen before discharging on home regimen 12/26 * CS is a 76 year old female presented to ED with right facial droop, slurred speech, and ataxia * Currently NPO as a precaution in light of facial droop * BSGs of 226 on admission, 173 mg/dL at lunchtime * HbA1c suggests good outpatient glycemic control with ~60 units of insulin/day + metformin as an outpatient PLAN FOR INPATIENT GLYCEMIC CONTROL: * Hold outpatient oral diabetes medications * Basal insulin * Lantus 15 units SC daily * Lantus 0-5 units SC HS (see EHR for details) * Bolus insulin * NovoLog per scale ACHS or Q6hrs while NPO * Goal Range: Low 110 mg/dL - High 140 mg/dL * Correction Factor: 25 mg/dL/unit, 20 mg/dL/unit with breakfast * Nutritional / Prandial insulin per carb ratio of 1 unit per 9 grams CHO consumed, 1 unit per 7 grams CHO consumed with breakfast
--- NOTE | 2021-12-29 14:42 | Hospitalist Progress Note ---
Date of Service December 29, 2021 Assessment & Plan (1) Stroke: Plan: A 76 yo female who developed A. fib while in the room, presented with Aphasia, right sided weakness. -Most likely suffered A medium to large left posterior parietal /occipital, a small left basal ganglia, and a tiny right periventricular stroke -Patient has no symptoms of her A. fib (aside from her stroke). -Likely patient has been going in an out of a fib prior to this episode. -Tele stroke consulted on admission no indication for transfer as likely posterior circulation and difficult to retrieve thrombus and no indication for tpa as out of window. 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 There are acute to subacute lacunar infarcts in the left thalamus and the right periventricular white matter. The presence of bilateral infarcts suggests an embolic phenomenon. No hemorrhage or mass effect is identified. Discussed with neurology. Given embolic origin and continued paroxysmal A. fib, has been started on anticoagulation, Eliquis 5mg BID. Reviewed telestroke recommendations which initially recommended holding off on anticoagulation for 10 to 14 days, given likely embolic findings on MRI with paroxysmal A. fib acute anticoagulation is reasonable. Benefits of anticoagulation including preventing further embolic stroke discussed with patient, risks of anticoagulation including hemorrhagic conversion of her existing stroke which could worsen her deficits or be life-threatening/fatal also discussed. Continue simvastatin. Continue aspirin. Continue therapy. Patient with right sided weakness, but aphasia has almost resolved and upper and lower extremity strength has significantly improved -Plan is to continue PT and acute Rehab (2) Atrial fibrillation with rapid ventricular response: Plan: Newly diagnosed. Patient with paroxysmal A. fib high risk for embolic stroke, with acute embolic stroke as above Continue metoprolol 5 mg IV every 6 as needed as needed, currently held for hypotension with adequate rate control. Cleared by speech No clinical signs of ACS. Elevated troponin likely demand ischemia. High- sensitivity troponin now downtrending. Anticoagulation Eliquis 5mg BID. patient is a DOAC candidate if tolerating anticoagulation well (3) Hypertension: Plan: Under good control Goal is systolic around 100mmhg per neurology (4) Dyslipidemia: Plan: Was switched to atorvastatin initially, given total cholesterol 113, embolic origin, and age switched back to simvastatin 40 mg (5) Diabetes mellitus type 2, insulin dependent: Plan: Glucose checks AC/at bedtime SSI [id number], CF 25, ratio 9 Pharmacy tilted for glycemic stroke management admission A1c 7.3 Plan: discharge to rehab when accepted Admission and Anticipated Discharge Date Admission Date: December 26, 2021 Subjective patient seen and examined, sitting up in the chair, the strength in her right upper extremity continues to improve Physical Exam Physical Exam: The patient is awake, alert and oriented 3, well developed and well nourished, normocephalic and atraumatic, lying in bed and in no acute distress. HEENT--PERRL, EOMI, mucous membranes and oropharynx mildly dry Neck--supple. No JVD. No bruits. Thyroid normal, trachea midline, no adenopathy. Heart--normal S1 and S2. No murmurs, rubs or gallops. Lungs--clear bilaterally, no respiratory distress, no accessory muscle use. Abdomen--normal bowel sounds and soft. Mild epigastric and left sided abdominal pain Extremities--no cyanosis or clubbing. No edema. Dermatologic--normal skin turgor, normal color, no abnormal lymph nodes, no rash. Neurologic--right [place] paresis Rheumatologic--normal range of motion. Psychiatric--normal affect. Results & Data Results & Data ([facility]) Vital Signs (Past 12 Hours) Vital Signs Temp Pulse Pulse Resp BP Pulse Ox 12/29/21 11:28 98.1 F 73 18 104/67 95 12/29/21 07:46 97.3 F L 68 16 148/76 H 96 12/29/21 07:37 60 12/29/21 02:50 98.1 F 69 16 117/72 92 PG Care Time/CCT Total # of Minutes Spent Total Time Spent with Patient: Total time spent is greater than 50% in coordination of care (as documented) at patient's floor/unit and/or counseling patient: Coding Level of Care Code 42794 Subseq Hosp Care Lvl 2 Diagnoses Stroke I63.9 Atrial fibrillation with rapid ventricular response I48.91 Hypertension I10 Dyslipidemia E78.5 Diabetes mellitus type 2, insulin dependent E11.9; Z79.4 Time Spent (min) 35
[2021-12-29] MEDS: SIMVASTATIN 40 MG TAB PO SCH (20:16)
[2021-12-29] MEDS ORDERED: INSULIN GLARGINE SOLOSTAR 100 UNITS/ML 3 ML PEN SC SCH (21:00)
[2021-12-30] MEDS: INSULIN ASPART PER UNIT SC SCH ×4 (08:41→20:39)
[2021-12-30] MEDS: INSULIN GLARGINE SOLOSTAR 100 UNITS/ML 3 ML PEN SC SCH (08:41)
[2021-12-30] MEDS: ASPIRIN 81 MG CHEW PO SCH (08:41)
[2021-12-30] MEDS: APIXABAN 5 MG TABLET PO SCH ×2 (08:42→20:24)
[2021-12-30] MEDS: METOPROLOL TARTRATE 100 MG TAB PO SCH ×2 (08:42→20:24)
[2021-12-30] MEDS: CEROVITE ADV FORMULA TAB PO SCH (08:42)
[2021-12-30] MEDS: OMEGA-3 (PURIFIED FISH OIL) 1 GM CAP PO SCH ×2 (08:42→20:24)
--- NOTE | 2021-12-30 14:44 | Hospitalist Progress Note ---
Date of Service December 30, 2021 Assessment & Plan (1) Stroke: Plan: A 76 yo female who developed A. fib while in the room, presented with Aphasia, right sided weakness. -Most likely suffered A medium to large left posterior parietal /occipital, a small left basal ganglia, and a tiny right periventricular stroke -Patient has no symptoms of her A. fib (aside from her stroke). -Likely patient has been going in an out of a fib prior to this episode. -Tele stroke consulted on admission no indication for transfer as likely posterior circulation and difficult to retrieve thrombus and no indication for tpa as out of window. MRI:There is a large acute to subacute left [employer] territory infarct. There are acute to subacute lacunar infarcts in the left thalamus and the right periventricular white matter. The presence of bilateral infarcts suggests an embolic phenomenon. No hemorrhage or mass effect is identified. Discussed with neurology. Given embolic origin and continued paroxysmal A. fib, has been started on anticoagulation, Eliquis 5mg BID. Reviewed telestroke recommendations which initially recommended holding off on anticoagulation for 10 to 14 days, given likely embolic findings on MRI with paroxysmal A. fib acute anticoagulation is reasonable. Benefits of anticoagulation including preventing further embolic stroke discussed with patient, risks of anticoagulation including hemorrhagic conversion of her existing stroke which could worsen her deficits or be life-threatening/fatal also discussed. Continue simvastatin. Continue aspirin. Continue therapy. Patient with right sided weakness, but aphasia has almost resolved and upper and lower extremity strength has significantly improved -Patient declines acute rehab, only agreeable to placement at [facility]. Case management aware, pending placement Continue anticoagulation, statin, aspirin (2) Atrial fibrillation with rapid ventricular response: Plan: Newly diagnosed. Patient with paroxysmal A. fib high risk for embolic stroke, with acute embolic stroke as above Continue metoprolol 100 mg p.o. twice daily Cleared by speech No clinical signs of ACS. Elevated troponin likely demand ischemia. High- sensitivity troponin now downtrending. Anticoagulation Eliquis 5mg BID. (3) Hypertension: Plan: Adequately controlled (4) Dyslipidemia: Plan: Was switched to atorvastatin initially, given total cholesterol 113, embolic origin, and age switched back to simvastatin 40 mg (5) Diabetes mellitus type 2, insulin dependent: Plan: Glucose checks AC/at bedtime SSI [id number], CF 25, ratio 9 Pharmacy tilted for glycemic stroke management admission A1c 7.3 Plan: Pending dispo Admission and Anticipated Discharge Date Admission Date: December 26, 2021 Subjective Seen at bedside. No acute distress. Feels her strokelike deficits are greatly improved, still noticed some poor coordination of the right arm, but licit up without difficulty and shows the exercises she has been doing on her home in the rooming occluding shoulder flexion raises and clinical writer flexion/extension. Minimal aphasia is present during exam. Patient reports she has not had any worsening symptoms, no chest pain, chest pressure, shortness of breath, lightheadedness, dizziness, headache, vision change overnight. Is anticipating going back to SNF, has discussed placement with case management but is only interested in yue g to [facility]. Case management following, pending placement Review of Systems Review of Systems: All systems reviewed & are unremarkable except as noted in Subjective Physical Exam Physical Exam: General: A&Ox3. NAD. Cooperative. Trace dysarthria. HEENT: Atraumatic, normocephalic. No nasolabial asymmetry. Pulm: CTAB A&P. -wheezes, -rales, -rhonchi. Symmetrical chest rise. No increase in work of breathing. No respiratory distress. Cardiac: RRR, -mrg. Radial pulses intact and symmetrical. Abdominal: Nontender, nondistended, soft. BS present. Extremities: Right clinical writer strength, elbow flexion/extension, and ankle dorsiflexion/plantar flexion qualitatively weaker than left, but with good effort and strength to antigravity. Patient with minimal right hip flexion to antigravity. sensation mildly diminished qualitatively to soft touch in right leg compared to left, sensation in hands to soft touch equal. Results & Data Results & Data ([facility]) Vital Signs (Past 12 Hours) Vital Signs Temp Pulse Pulse Resp BP Pulse Ox 12/30/21 07:19 36.4 C L 70 18 165/88 H 95 12/30/21 06:57 68 12/30/21 03:43 36.9 C 67 18 144/82 H 97 PG Care Time/CCT Total # of Minutes Spent Total Time Spent with Patient: Total time spent is greater than 50% in coordination of care (as documented) at patient's floor/unit and/or counseling patient: Coding Level of Care Code 32030 Subseq Hosp Care Lvl 2 Diagnoses Stroke I63.9 Atrial fibrillation with rapid ventricular response I48.91 Hypertension I10 Dyslipidemia E78.5 Diabetes mellitus type 2, insulin dependent E11.9; Z79.4
[2021-12-30] MEDS: SIMVASTATIN 40 MG TAB PO SCH (20:24)
[2021-12-31] MEDS: INSULIN ASPART PER UNIT SC SCH ×4 (09:15→21:16)
[2021-12-31] MEDS: APIXABAN 5 MG TABLET PO SCH ×2 (09:17→20:51)
[2021-12-31] MEDS: OMEGA-3 (PURIFIED FISH OIL) 1 GM CAP PO SCH ×2 (09:17→20:51)
[2021-12-31] MEDS: INSULIN GLARGINE SOLOSTAR 100 UNITS/ML 3 ML PEN SC SCH (09:18)
[2021-12-31] MEDS: METOPROLOL TARTRATE 100 MG TAB PO SCH ×2 (09:19→20:51)
[2021-12-31] MEDS: CEROVITE ADV FORMULA TAB PO SCH (09:19)
[2021-12-31] MEDS: ASPIRIN 81 MG CHEW PO SCH (09:28)
--- NOTE | 2021-12-31 13:16 | Pharmacy Report ---
Pharmacy Glycemic Short Note 2 - Date of Service December 31, 2021 - Glycemic Short BSG Results (Last 24 hours): 12/30/21 12/30/21 12/31/21 16:34 20:37 07:14 POC Glucose 141 H 90 137 H 12/31/21 11:17 POC Glucose 183 H OUTPATIENT ANTIDIABETIC REGIMEN: * Novolog 46 units SC qAM, 14 units SC qPM * Metformin 1 g PO BIDM * HbA1c: 6.8% (08/17/21) ASSESSMENT: 12/31 * BSGs remain reasonably well-controlled with lunch BSG generally being the only out of range BSG * Fasting BSG has remained steady ~130-140 mg/dL on 15 units of Lantus * Will increase Lantus dose today ~20% * Continue tightened AM parameters with loosened parameters the rest of the day 12/29 * BSGs reasonably well-controlled, highest BSG of day seems to be lunchtime (185 mg/dL yesterday) * Fasting BSG of 134 mg/dL this morning - significant reduction from yesterday * Will give scaled Lantus dose today to provide 75-100% of yesterday's dose based on BSG * Given elevated lunchtime BSGs, will tighten Novolog parameters with AM dose starting tomorrow morning * Heparin gtt (mixed in dextrose) discontinued yesterday 12/27 * Patient received total of 18 units of insulin yesterday, of which 15 units were basal * Fasting BSG 165 mg/dL - continue with Lantus 15 units daily, continues NPO status this AM * May add small Lantus scale for HS if diet changed and if BSGs trending upward * Patient on all novolog insulin at home, very large dose in the morning. Would ensure patient not having any hypoglycemia outpatient with current insulin regimen before discharging on home regimen 12/26 * CS is a 76 year old female presented to ED with right facial droop, slurred speech, and ataxia * Currently NPO as a precaution in light of facial droop * BSGs of 226 on admission, 173 mg/dL at lunchtime * HbA1c suggests good outpatient glycemic control with ~60 units of insulin/day + metformin as an outpatient PLAN FOR INPATIENT GLYCEMIC CONTROL: * Hold outpatient oral diabetes medications * Basal insulin * Lantus 18 units SC daily * Bolus insulin * NovoLog per scale ACHS or Q6hrs while NPO * Goal Range: Low 110 mg/dL - High 140 mg/dL * Correction Factor: 30 mg/dL/unit, 20 mg/dL/unit with breakfast * Nutritional / Prandial insulin per carb ratio of 1 unit per 15 grams CHO consumed, 1 unit per 7 grams CHO consumed with breakfast
--- NOTE | 2021-12-31 18:14 | Hospitalist Progress Note ---
Date of Service December 31, 2021 Assessment & Plan (1) Stroke: Plan: A 76 yo female who developed A. fib while in the room, presented with Aphasia, right sided weakness. -Most likely suffered A medium to large left posterior parietal /occipital, a small left basal ganglia, and a tiny right periventricular stroke -Patient has no symptoms of her A. fib (aside from her stroke). -Likely patient has been going in an out of a fib prior to this episode. -Tele stroke consulted on admission no indication for transfer as likely posterior circulation and difficult to retrieve thrombus and no indication for tpa as out of window. 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 There are acute to subacute lacunar infarcts in the left thalamus and the right periventricular white matter. The presence of bilateral infarcts suggests an embolic phenomenon. No hemorrhage or mass effect is identified. Discussed with neurology. Given embolic origin and continued paroxysmal A. fib, has been started on anticoagulation, Eliquis 5mg BID. Reviewed telestroke recommendations which initially recommended holding off on anticoagulation for 10 to 14 days, given likely embolic findings on MRI with paroxysmal A. fib acute anticoagulation is reasonable. Benefits of anticoagulation including preventing further embolic stroke discussed with patient, risks of anticoagulation including hemorrhagic conversion of her existing stroke which could worsen her deficits or be life-threatening/fatal also discussed. Continue simvastatin. Continue aspirin. Continue therapy. Patient with right sided weakness, but aphasia has almost resolved and upper and lower extremity strength has significantly improved -Case discussed with case management. Patient is actually open to placement [facility]. Family would like to be involved in future decisions. Anticipate bed available tomorrow. Continue anticoagulation, statin, aspirin (2) Atrial fibrillation with rapid ventricular response: Plan: Newly diagnosed. Patient with paroxysmal A. fib high risk for embolic stroke, with acute embolic stroke as above Continue metoprolol 100 mg p.o. twice daily Cleared by speech No clinical signs of ACS. Elevated troponin likely demand ischemia. High- sensitivity troponin now downtrending. Anticoagulation Eliquis 5mg BID. (3) Hypertension: Plan: Adequately controlled (4) Dyslipidemia: Plan: Was switched to atorvastatin initially, given total cholesterol 113, embolic origin, and age switched back to simvastatin 40 mg (5) Diabetes mellitus type 2, insulin dependent: Plan: Glucose checks AC/at bedtime SSI 284295, CF 25, ratio 9 Pharmacy tilted for glycemic stroke management admission A1c 7.3 Patient has type 2 diabetes mellitus. Diabetes medication with proven CVD benefit including SGLT2/GLP-1 will be deferred to outpatient provider given Celerity with risk/benefits and follow-up, patient is at increased risk of adverse effects from UTIs. Plan: Pending dispo Admission and Anticipated Discharge Date Admission Date: December 26, 2021 Subjective Seen briefly at bedside. No acute distress. No new symptoms, moving extremities equally. is open to [facility], discussed case with case management. Pending Auth, anticipate placement available tomorrow. No new interval change. Review of Systems Review of Systems: All systems reviewed & are unremarkable except as noted in Subjective Physical Exam Physical Exam: General: NAD. Cooperative. Trace dysarthria. HEENT: Atraumatic, normocephalic. No nasolabial asymmetry. Pulm: Symmetrical chest rise. No increase in work of breathing. No respiratory distress. Extremities: Moving all 4 extremities, sitting up eating without distress Results & Data Results & Data ([facility] [place]) Vital Signs (Past 12 Hours) Vital Signs Temp Pulse Pulse Resp BP Pulse Ox 12/31/21 15:08 66 12/31/21 12:48 36.8 C 64 18 148/65 H 97 12/31/21 08:16 36.7 C 85 18 158/75 H 97 12/31/21 08:00 56 L PG Care Time/CCT Total # of Minutes Spent Total Time Spent with Patient: Total time spent is greater than 50% in coordination of care (as documented) at patient's floor/unit and/or counseling patient: Coding Level of Care Code 63815 Subseq Hosp Care Lvl 1 Diagnoses Stroke I63.9 Atrial fibrillation with rapid ventricular response I48.91 Hypertension I10 Dyslipidemia E78.5 Diabetes mellitus type 2, insulin dependent E11.9; Z79.4
[2021-12-31] MEDS: SIMVASTATIN 40 MG TAB PO SCH (20:51)
[2022-01-01] MEDS: INSULIN ASPART PER UNIT SC SCH ×2 (08:25→12:52)
[2022-01-01 08:33] LABS: BUN Creatinine Ratio 23.3 (10-20); Calcium 9.5 mg/dl (8.5-10.1); Creatinine Clr Calc Pharmacy 46.3 ml/min; Est GFR (Non-African American) 61.2 ml/min; Potassium 3.9 mmol/L (3.5-5.1)
[2022-01-01] MEDS: OMEGA-3 (PURIFIED FISH OIL) 1 GM CAP PO SCH (09:25)
[2022-01-01] MEDS: METOPROLOL TARTRATE 100 MG TAB PO SCH (09:25)
[2022-01-01] MEDS: CEROVITE ADV FORMULA TAB PO SCH (09:26)
[2022-01-01] MEDS: APIXABAN 5 MG TABLET PO SCH (09:26)
[2022-01-01] MEDS: ASPIRIN 81 MG CHEW PO SCH (09:57)
[2022-01-01] MEDS: INSULIN GLARGINE SOLOSTAR 100 UNITS/ML 3 ML PEN SC SCH (10:28)
[2022-01-01] MEDS ORDERED: hydroCHLOROthiazide 25 MG TAB PO SCH (12:15)
[2022-01-01] MEDS ORDERED: STROKE PATIENT DISCHARGE STA (12:15)
--- NOTE | 2022-01-01 12:23 | Discharge Summary ---
Date of Service January 01, 2022 Admission HPI Per Admitting Provider This is a pleasant 76 yo female with PMH DM2, HTN, BMI>30, presents to the ER with right sided weakness. Patient reports she was her normal self and fell asleep near 10 PM. When she woke up she stated she couldn't get out of bed, and had weakness in her lower extremity as well as weakness in her right arm. Family noticed slurring in her speech, which prompted her to come to the ER. Principal Diagnosis Cardioembolic stroke 2/2 A. fib Discharge Exam General: A&Ox3. NAD. Cooperative. Trace dysarthria. HEENT: Atraumatic, normocephalic. No nasolabial asymmetry. Pupiles equal and reactive. Pulm: CTAB A&P. -wheezes, -rales, -rhonchi. Symmetrical chest rise. No increase in work of breathing. No respiratory distress. Cardiac: RRR, -mrg. Radial pulses intact and symmetrical. Abdominal: Nontender, nondistended, soft. BS present. 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 Imparied right hip flexion to antigravity. sensation mildly diminished qualitatively to soft touch in right leg compared to left, sensation in hands to soft touch equal. Discharge Data Allergies Allergy/AdvReac Type Severity Reaction Status Date / Time Sulfa (Sulfonamide Allergy Mild Rash Verified 08/17/21 11:27 Antibiotics) Consultations 12/26/21 09:53 ED Decision to Admit Stat 12/26/21 09:59 Consult Neurology Routine 12/26/21 10:21 Consult Cardiology Routine Ordered Studies 12/26/21 07:16 CT angio head w con Stat CT angio neck with con Stat CT head/brain wo con Stat 12/26/21 10:27 MR brain wo con Routine Hospital Course (1) Stroke: A 76 yo female who developed A. fib while in the room, presented with Aphasia, right sided weakness. Left TRENCH DIGGER, small basal ganglia, right periventricular stroke likely of cardioembolic origin. Started on DOAC anticoagulation. Addition of CBD benefit DM medications deferred to outpatient provider. To do as outpatient: 1. Acute rehab, post stroke rehab 2. Continue apixaban 5 mg p.o. twice daily 3. Routine follow-up with PCP 4. Consider addition of SGLT2/GLP1 for CVD benefit 5. Cardiology follow-up as outpatient -Most likely suffered A medium to large left posterior parietal /occipital, a small left basal ganglia, and a tiny right periventricular stroke -Patient has no symptoms of her A. fib (aside from her stroke). -Likely patient has been going in an out of a fib prior to this episode. -Tele stroke consulted on admission no indication for transfer as likely posterior circulation and difficult to retrieve thrombus and no indication for tpa as out of window. MRI:There is a large acute to subacute left TRENCH DIGGER territory infarct. There are acute to subacute lacunar infarcts in the left thalamus and the right periventricular white matter. The presence of bilateral infarcts suggests an embolic phenomenon. No hemorrhage or mass effect is identified. Discussed with neurology. Given embolic origin and continued paroxysmal A. f ib, has been started on anticoagulation, Eliquis 5mg BID. Reviewed telestroke recommendations which initially recommended holding off on anticoagulation for 10 to 14 days, given likely embolic findings on MRI with paroxysmal A. fib acute anticoagulation is reasonable. Benefits of anticoagulation including preventing further embolic stroke discussed with patient, risks of anticoagulation including hemorrhagic conversion of her existing stroke which could worsen her deficits or be life-threatening/fatal also discussed. Continue simvastatin. Continue aspirin. Continue therapy. Patient with right sided weakness, but aphasia has almost resolved and upper and lower extremity strength has significantly improved -Case discussed with case management. Patient is actually open to placement [facility]. Family would like to be involved in future decisions. Bed available 01/01 Continue anticoagulation, statin, aspirin. Statin was initially increased and intensification, LDL/cholesterol were as below and given embolic origin and good control with switch back to simvastatin (2) Atrial fibrillation with rapid ventricular response: Newly diagnosed. Patient with paroxysmal A. fib high risk for embolic stroke, with acute embolic stroke as above Continue metoprolol 100 mg p.o. twice daily Cleared by speech No clinical signs of ACS. Elevated troponin likely demand ischemia. High- sensitivity troponin now downtrending. Anticoagulation Eliquis 5mg BID. (3) Hypertension: Adequately controlled (4) Dyslipidemia: Was switched to atorvastatin initially, given total cholesterol 113, embolic origin, and age switched back to simvastatin 40 mg (5) Diabetes mellitus type 2, insulin dependent: Glucose checks AC/at bedtime SSI [id number], CF 25, ratio 9 A1c 7.3 Patient has type 2 diabetes mellitus. Diabetes medication with proven CVD benefit including SGLT2/GLP-1 will be deferred to outpatient provider given familiarity with risk/benefits and follow-up, patient is at increased risk of adverse effects from UTIs. Total Time Total Time Spent Total Time Spent (In Minutes): Time spend day of discharge 45 minutes including direct patient care, documentation, review of labs and images, and coordination of care. Discharge Plan Discharge Items Patient Disposition: Transfer Inpatient Rehab Fac Reason For Visit: STROKE Discharge Diagnosis: Stroke Activity: Per Instructions section Non-emergency contact: Primary Care Provider and Neurologist Call non-emergency contact if: you have any medication questions, your symptoms worsen and your pain is not controlled Follow-up/Referrals: Azul Restrepo DO [Primary Care Provider] - Diet: Heart Healthy Addtl Attending Provider Instructions: You are seen in the hospital for a stroke. You are found to be in A. fib during admission. Your imaging showed a medium to large TRENCH DIGGER stroke, lacunar infarct in the left thalamus, and right periventricular white matter stroke. The patterning of your stroke suggested an embolic stroke, which is a type of stroke that is likely to have come from your heart due to A. fib. To protect you from further strokes you have been started on a blood thinner, Eliquis. Your weakness was improving by time of discharge, and you are being discharged to rehab for further care. You have been prescribed a blood thinner, Eliquis. This helps prevent clots from forming with A. fib which can cause strokes like the one you experienced. Blood thinners can cause bleeding, and have an increased bleeding risk. If you sustain a small cut please apply firm direct pressure for 10 minutes without checking. If you sustain a larger wound, or any bleeding that does not stop with 10 minutes of direct pressure please seek prompt medical reevaluation. Please take Eliquis 5 mg by mouth twice daily. You did not show any signs of heart attack during your admission. You have been continued on simvastatin 40 mg, high cholesterol is not likely to have contributed to this type of a stroke. All patient with diabetes should have careful monitoring of their blood glucose and medications. It is recommended that a SGLT2/GLP-1 medication be considered for you by your primary care physician as an outpatient. This medication was not started during admission. If you develop any new or worsening symptoms including fever, chills, sweats, chest pain, chest pressure, difficulty breathing, uncontrolled nausea/vomiting, rash, wheezing, passing out or nearly passing out, bleeding, black/bloody bowel movements, or other new or concerning symptoms please call your primary care physician, or call 911 for re-evaluation in the emergency department if you are very concerned. Pending Studies at Discharge: No Stand-Alone Forms: Medications to Prevent Stroke, My [employer], Smoking Cessation Skilled Items Patient informed of condition?: Yes DNR: No Discharge Level of Care: Acute rehab Communicable Disease: No Discharge Prognosis: Stable Lines: None Urinary Catheter: No Medications and DC Order Prescriptions: New Eliquis 5 mg Tablet 5 mg PO BID 30 Days Qty: 60 RF: 0 Continued glucose [Dex4 Glucose] 4 gram tablet,chewable 4 g PO Q15M PRN (Reason: hypoglycemia) Qty: 20 RF: 0 metformin 1,000 mg tablet 1,000 mg PO BID 90 Days Qty: 180 RF: 1 (DME) OneTouch Ultra Test Strip See Rx Instructions .Route Qty: 200 RF: 1 metoprolol tartrate 100 mg tablet 100 mg PO BID Qty: 180 RF: 1 losartan 100 mg tablet 100 mg PO DAILY Qty: 90 RF: 1 (DME) lancets [Accu-Chek Multiclix Lancet] Misc See Rx Instructions .ROUTE .MEDSUPPLY Qty: 100 RF: 3 (DME) pen needle, diabetic [BD Ultra-Fine Orig Pen Needle] 29 gauge x 1/2" needle See Rx Instructions .ROUTE .MEDSUPPLY Qty: 200 RF: 5 simvastatin 40 mg tablet 40 mg PO HS Qty: 90 RF: 1 amlodipine 2.5 mg tablet 2.5 mg PO DAILY Qty: 90 RF: 1 hydrochlorothiazide 25 mg tablet 25 mg PO DAILY Qty: 90 RF: 1 Novolog Flexpen U-100 Insulin 100 unit/mL (3 mL) insulin pen See Rx Instructions SUBCUT BID Qty: 60 RF: 3 Multivitamin 50 Plus Tablet 1 tab PO QAM RF: 0 aspirin [Aspirin Childrens] 81 mg Tablet,Chewable 81 mg PO DAILY RF: 0 omega 8-ryo-ekx-fish oil [Fish Oil] 360-1,200 mg Capsule,Delayed Release(Dr/Ec) 1 cap PO BID RF: 0 Discharge Orders: Discharge Order (Routine); Ordered 01/01/22 Ordered By: Dereck Fung/Other Patient Handouts: Managing Type 2 Diabetes Admission Data Admit Date/Time: 12/26/21 10:11 Attending Provider: Dereck Walker Admit Provider: Rogerio Cook Primary Care Provider: Azul Restrepo Other Providers: Rogerio Cook ; Macho Hood ; Al Lakhani ; [facility] ; [facility] Coding Level of Care Code D/C DAY MANAGEMENT >30 MINS Diagnoses Stroke I63.9 Atrial fibrillation with rapid ventricular response I48.91 Hypertension I10 Dyslipidemia E78.5 Diabetes mellitus type 2, insulin dependent E11.9; Z79.4
== END 2022-01-01 14:50 | DRG 65 ==
LOC: ED 07:02 → 2S 10:11 → SUATTDRO 10:11 → 2S 11:13